=== PATIENT | female | born 1955 | race Caucasian/White ===

== ENCOUNTER 2017-10-27 17:19 | Observation (INO) ==
--- NOTE | 2017-10-27 17:48 | Emergency Department Note ---
Disposition Clinical Impression: Atrial fibrillation with RVR Disposition: Admitted As Inpatient Condition: Fair General Adult HPI - General Chief complaint: ED Chest Pain Stated complaint: Hypertension Time Seen by Provider: 10/27/17 17:22 - History of Present Illness Pain Scale: 2 - Related Data Home Medications Medication Instructions Recorded Confirmed Albuterol Sulfate [Proair Hfa] 2 puff IH Q4H PRN 10/18/17 10/27/17 Metoprolol [Lopressor] 25 mg PO BID 10/18/17 10/27/17 Mometasone/Formoterol [Dulera 200 1 puff IH BID 10/18/17 10/27/17 Mcg/5 Mcg Inhaler] Furosemide [Lasix] 20 mg PO DAILY 10/27/17 10/27/17 Allergies Allergy/AdvReac Type Severity Reaction Status Date / Time codeine AdvReac Vomiting Verified 10/27/17 17:59 ketoprofen AdvReac Hives Verified 10/27/17 17:59 Past Medical History - Past Medical History Medical history: Reports: asthma, COPD, hypertension Surgical history: Reports: other (lumbar fusion) Psychiatric history: Reports: anxiety, depression - Social History Smoking Status: Current every day smoker Smokeless Tobacco Status: No Alcohol use: Reports: none Drug use: Reports: none Course Vital Signs Temperature 98.9 F 10/27/17 17:20 Pulse Rate 165 10/27/17 17:20 Respiratory Rate 24 10/27/17 17:20 Blood Pressure 182/110 10/27/17 17:20 O2 Sat by Pulse Oximetry 94 10/27/17 17:20 Temperature 98.9 F 10/27/17 18:41 Pulse Rate 140 10/27/17 18:45 Respiratory Rate 20 10/27/17 18:45 Blood Pressure 145/90 10/27/17 18:45 O2 Sat by Pulse Oximetry 94 10/27/17 18:45 Oxygen Delivery Oxygen Delivery Room Air Medical Decision Making - Lab Data Result diagrams: 10/27/17 17:40 10/27/17 17:40 Lab Results 10/27/17 10/27/17 Range/Units 17:40 17:40 WBC 14.8 H (4.3-11.1) K/mcL RBC 5.59 H (3.82-4.97) M/mcL Hgb 16.1 H (11.5-15.4) g/dL Hct 48.9 H (35.3-44.9) % MCV 87.5 (83.0-100.0) fL MCH 28.8 (28.0-33.3) pg MCHC 32.9 (31.6-35.5) g/dL RDW 13.7 (11.5-14.5) % Plt Count 261 (140-400) K/mcL MPV 10.8 (9.4-12.4) fL Sodium 136 (136-145) mEq/L Potassium 4.0 (3.5-5.1) mEq/L Chloride 108 H (98-107) mEq/L Carbon Dioxide 23 (23-29) mEq/L BUN 12 (8-23) mg/dL Creatinine 0.76 (0.60-1.20) mg/dL Est GFR ( Amer) > 60 (> 60) Est GFR (Non-Af Amer) > 60 (> 60) BUN/Creatinine Ratio 16 (6-26) Glucose 125 H (70-105) mg/dL Calculated Osmolality 283 (280-300) Calcium 9.5 (8.6-10.3) mg/dL Troponin I < 0.03 (< 0.04) ng/mL Attestation Statement - Attestation Attestation: I examined this patient and my medical decision-making was reviewed with the BATH ATTENDANT/PA/Advanced Practice Nurse/Resident Physician. I agree with the documented findings, disposition and treatment plan as described except to the extent set forth below. I did see the patient upon arrival and she does have chest pain for one hour which is now resolved, palpitations, lightheadedness and her EKG does show atrial fibrillation with a rapid ventricular response with a rate of 174 bpm with some nonspecific ST changes. The patient does use Lopressor 25 mg twice a day for elevated blood pressure for the last 3 weeks but is not taking any anti- arrhythmia medication besides this and does not take any anticoagulation so the patient will receive Cardizem bolus 20 mg and then 10 mg per hour, labs, x-ray, monitoring, IV access and be admitted to the hospital. She is here with her . Mentating well 174 The patient's heart rhythm is now normal sinus rhythm with a repeat EKG showing normal sinus rhythm with rate of 75 without acute ischemic change. I did review the labs. The patient's Cardizem drip has been decreased and is now 5 mg per hour 1912
[2017-10-27 18:02] LABS: Hematocrit 48.9 % (35.3-44.9); Hemoglobin 16.1 g/dL (11.5-15.4); Mean Corpuscular HGB Conc 32.9 g/dL (31.6-35.5); Mean Corpuscular Hemoglobin 28.8 pg (28.0-33.3); Mean Corpuscular Volume 87.5 fL (83.0-100.0); Mean Platelet Volume 10.8 fL (9.4-12.4); Platelet Count 261 K/mcL (140-400); Red Blood Count 5.59 M/mcL (3.82-4.97); Red Cell Distribution Width 13.7 % (11.5-14.5)
[2017-10-27 18:23] LABS: BUN/Creatinine Ratio 16 (6-26); Blood Urea Nitrogen 12 mg/dL (8-23); Calcium 9.5 mg/dL (8.6-10.3); Carbon Dioxide 23 mEq/L (23-29); Chloride 108 mEq/L (98-107); Glucose 125 mg/dL (70-105); Osmolality,Calculated 283 (280-300); Sodium 136 mEq/L (136-145); eGFR For African Americans > 60 (> 60); eGFR For Non-African Americans > 60 (> 60)
[2017-10-27 18:28] LABS: Troponin I < 0.03 ng/mL (< 0.04)
--- NOTE | 2017-10-27 18:49 | Emergency Department Note ---
Disposition Clinical Impression: Atrial fibrillation with RVR, Palpitations Chest pain Qualifiers: Chest pain type: unspecified Qualified Code(s): R07.9 - Chest pain, unspecified Disposition: Admitted As Inpatient Condition: Fair Time of Disposition: 18:49 Chest Pain HPI - General Chief Complaint: ED Chest Pain Stated Complaint: Hypertension Time Seen by Provider: 10/27/17 17:22 Source: patient Mode of arrival: ambulatory Limitations: no limitations Vital Signs Reviewed: Yes Nursing Notes Reviewed: Yes - History of Present Illness HPI Narrative: Patient presenting to the ED with the chief complaint of chest pain and A. fib. Patient was newly diagnosed with A. fib last week and converted in the emergency department. She was discharged home with close outpatient cardiology follow-up. I did start her on metoprolol and had prescribed anticoagulation, but the patient was unable to afford the anticoagulation and has not been taking it. She states that she feels like her heart is racing again and fluttering. She reports feeling weak and dizzy at times. She also reports that she was sent to the ER because she was getting an outpatient echocardiogram to follow-up on diastolic heart failure, when they noted that her heart rate was in the 160s and 170s and that is why she was sent to the ER. She states she has felt palpitations off and on for "a while" but it has been worse within the last several weeks. No fever or chills. She does describe a centralized chest pressure and heaviness, non-Radiating and Nothing Really Seems to Make It Better or Worse. She feels short of breath when her heart rate gets high, but otherwise does not have dyspnea. No abdominal pain, vomiting or diarrhea. She is also mildly nauseated. No pain or swelling in her legs. Severity scale (1-10): 2 - Related Data Home Medications Medication Instructions Recorded Confirmed Albuterol Sulfate [Proair Hfa] 2 puff IH Q4H PRN 10/18/17 10/27/17 Metoprolol [Lopressor] 25 mg PO BID 10/18/17 10/27/17 Mometasone/Formoterol [Dulera 200 1 puff IH BID 10/18/17 10/27/17 Mcg/5 Mcg Inhaler] Furosemide [Lasix] 20 mg PO DAILY 10/27/17 10/27/17 Allergies Allergy/AdvReac Type Severity Reaction Status Date / Time codeine AdvReac Vomiting Verified 10/27/17 17:59 ketoprofen AdvReac Hives Verified 10/27/17 17:59 Review of Systems: As reviewed in the HPI. All other systems reviewed are negative or normal. Chest Pain PMH - Past Medical History Medical history: Reports: asthma, COPD, hypertension Surgical history: Reports: other (lumbar fusion) Psychiatric history: Reports: anxiety, depression - Social History Smoking Status: Current every day smoker Alcohol use: Reports: none Drug use: Reports: none Physical Exam - General Limitations: no limitations General appearance: alert, in no apparent distress - Head Head exam: atraumatic, normocephalic, normal inspection - Eye Eye exam: Present: normal appearance, PERRL, EOMI - ENT ENT exam: normal exam, normal oropharynx, mucous membranes moist - Neck Neck exam: Present: normal inspection, full ROM, trachea midline - Chest Chest inspection: Present: normal inspection, symmetric chest wall rise - Respiratory Respiratory exam: Present: normal lung sounds bilaterally - Cardiovascular Cardiovascular exam: Present: tachycardia, normal heart sounds - Abdominal Exam Abdominal exam: Present: soft, Non-Tender. Absent: tenderness, distention, guarding, rebound, rigidity - Extremities Exam Extremities exam: Present: normal inspection, full ROM. Absent: tenderness, pedal edema - Neurological Exam Neurological exam: Present: alert, oriented X3 - Psychiatric Psychiatric exam: Present: normal affect, normal mood - Skin Skin exam: Present: warm, dry, intact, normal color Course Course Narrative: Patient presenting with A. fib with RVR. Was a new diagnosis last week, but converted in the emergency department and saw cardiology as an outpatient. Was supposed to be on anticoagulants, but she states was too expensive, so she has not been anticoagulated. She does feel palpitations and tachycardia and does have some chest pressure. We will get basic workup and admit. Patient will also need an echocardiogram. - Reevaluation(s) Reevaluation #1: Admitted to the hospital service. Dr. Baxter accepts patient for admission Time: 18:46 Vital Signs Temperature 98.9 F 10/27/17 17:20 Pulse Rate 165 10/27/17 17:20 Respiratory Rate 24 10/27/17 17:20 Blood Pressure 182/110 10/27/17 17:20 O2 Sat by Pulse Oximetry 94 10/27/17 17:20 Temperature 98.9 F 10/27/17 18:41 Pulse Rate 140 10/27/17 18:45 Respiratory Rate 20 10/27/17 18:45 Blood Pressure 145/90 10/27/17 18:45 O2 Sat by Pulse Oximetry 94 10/27/17 18:45 Oxygen Delivery Oxygen Delivery Room Air Chest Pain - Medical Records Medical records reviewed: Yes I reviewed the patient's medical records. - Lab Data Lab results reviewed: Yes I reviewed the patient's lab results. Result diagrams: 10/27/17 17:40 10/27/17 17:40 Lab Results 10/27/17 10/27/17 Range/Units 17:40 17:40 WBC 14.8 H (4.3-11.1) K/mcL RBC 5.59 H (3.82-4.97) M/mcL Hgb 16.1 H (11.5-15.4) g/dL Hct 48.9 H (35.3-44.9) % MCV 87.5 (83.0-100.0) fL MCH 28.8 (28.0-33.3) pg MCHC 32.9 (31.6-35.5) g/dL RDW 13.7 (11.5-14.5) % Plt Count 261 (140-400) K/mcL MPV 10.8 (9.4-12.4) fL Sodium 136 (136-145) mEq/L Potassium 4.0 (3.5-5.1) mEq/L Chloride 108 H (98-107) mEq/L Carbon Dioxide 23 (23-29) mEq/L BUN 12 (8-23) mg/dL Creatinine 0.76 (0.60-1.20) mg/dL Est GFR ( Amer) > 60 (> 60) Est GFR (Non-Af Amer) > 60 (> 60) BUN/Creatinine Ratio 16 (6-26) Glucose 125 H (70-105) mg/dL Calculated Osmolality 283 (280-300) Calcium 9.5 (8.6-10.3) mg/dL Troponin I < 0.03 (< 0.04) ng/mL - Radiology Data Radiology results reviewed: Yes I reviewed the patient's radiology results. - EKG Data EKG attestation: Yes I reviewed and interpreted this EKG. EKG results narrative: A. fib with RVR, rate 174, QTC 343, normal axis, no ischemic changes
[2017-10-27] MEDS ORDERED: Ondansetron 4 MG/2 ML VIAL IVP ONE (18:51)
[2017-10-27] MEDS ORDERED: Naloxone 0.4 MG/ML INJ IVP PRN (19:59)
--- NOTE | 2017-10-27 20:01 | Internal Med History&Physical ---
Date of Encounter: 10/27/17 Time of Encounter: 19:51 Internal Medicine - H&P: HPI Chief complaint: PALPITATION Admitted From: Home Plans for Post Hospital Care: Home History of present illness: Ms. Licea is a 62 year old female WITH H/O htn, copd, chronic a smoker, a strong family history of cardiac disease especially father side and his father at age of 55 due to massive heart attack, newly diagnosed with A. fib last week but not on any anticoagulation though Gen. to was prescribed by her check scaler Dr. Lutz last week but could not get filled due to insurance coverage problem and cardiologists is still working on that. Today morning patient developed palpitation, lightheadedness, dizziness with right sternal chest discomfort in the morning after coming back from the bathroom. Patient came to emergency room where A. fib with RVR was found and Cardizem drip was started. Your physician called on-call hospitalists for the admission for the further management of A. fib with RVR. When I interviewed the patient she converted into normal sinus rhythm. Patient denies fever or chills vomiting headache dizziness short of breath abdominal pain urinary complaint or bowel complaint. Patient had nausea and associated shortness of breath when palpitation episode happened. She had intermittent mild chest discomfort on right sternal area 1-2 x 10 nonradiating but not now this time. Past Med Surg Social Fam HX - Past Medical History Medical history: asthma, COPD, hypertension Psychiatric history: anxiety, depression - Past Surgical History Surgical History: other (lumbar fusion) Additional surgical history: BACK SURGERY - Social History Smoking Status: Current every day smoker Smokeless Tobacco Status: No Alcohol use: none Drug use: none - Family History Father Hx Family Cardiac Disorders: Yes Internal Medicine - H&P: Meds Albuterol Sulfate [Proair Hfa] 2 puff IH Q4H PRN 10/18/17 [History] Metoprolol [Lopressor] 25 mg PO BID 10/18/17 [History] Mometasone/Formoterol [Dulera 200 Mcg/5 Mcg Inhaler] 1 puff IH BID 10/18/17 [ History] Furosemide [Lasix] 20 mg PO DAILY 10/27/17 [History] 3 Allergy/AdvReac Type Severity Reaction Status Date / Time codeine AdvReac Vomiting Verified 10/27/17 17:59 ketoprofen AdvReac Hives Verified 10/27/17 17:59 All Systems PM: A 10-system review of systems was performed and is negative for pertinent findings except as documented above in the HPI. - Constitutional Vitals: Temp Pulse Resp BP Pulse Ox 98.9 F 140 20 145/90 94 10/27/17 18:41 10/27/17 18:45 10/27/17 18:45 10/27/17 18:45 10/27/17 18:45 Exam: General appearance: No acute distress, A&O X 3, obese Head exam: Atraumatic Eye exam: EOMI, PERRLA ENT exam: Moist oral mucosa Neck nontender, supple Respiratory exam: Clear to auscultation bilaterally Cardiovascular exam: Regular rate and rhythm, no systolic murmur Abdominal exam: Soft, nontender, nondistended, positive bowel sounds Extremities exam: No calf tenderness, no pedal edema Present: Skin-no rash, warm, dry, intact Neurological exam: Alert, awake, oriented 3, CN II-XII intact, no focal deficits. No facial droop. Normal speech. Normal gait. Internal Med - H&P Results - Labs CBC & Chem 7: 10/27/17 17:40 10/27/17 17:40 - Assessment and plan (1) Atrial fibrillation with RVR Current Visit: Yes Status: Acute Assessment and plan: Recently diagnosed last week. Patient is on metoprolol 25 mg by mouth twice a day but does was decreased to half as patient had episode of bradycardia. Not on anticoagulation at this time but check scaler is working on it due to insurance coverage problem. Cardizem drip was started in the ER but now patient to normal sinus rhythm therefore will discontinue Cardizem drip. Consulted check scaler and discussed the case with on-call check scaler Dr. Elise who advised to resume home dose metoprolol 25 mg by mouth twice a day, heparin drip, echocardiogram. Tomorrow morning we will decide for the possibility of stress tests if patient is stable or as per cardiology advice. Will keep patient nothing by mouth after midnight. (2) Chest pain Current Visit: Yes Status: Acute Assessment and plan: No active chest pain. Patient has some chest discomfort and associated A. fib with RVR. Patient never had cardiac workup but has very strong family history of cardiac disease therefore need extensive cardiac workup. Echocardiogram ordered. Plan to have a stress test tomorrow after the cardiology evaluation. Continue heparin drip, aspirin, beta flor, statin, nitroglycerin when necessary. Fasting lipid profile ordered. Qualifiers: Chest pain type: unspecified Qualified Code(s): R07.9 - Chest pain, unspecified (3) Leukocytosis Current Visit: Yes Status: Acute Assessment and plan: Patient denies fever. No associated systemic sign and symptom. Urine analysis and chest x-ray ordered. Will wait for the report before considering antibiotic as patient does not appear in sepsis. Could be reactionary response to the ongoing stress due to acute illness. Monitor CBC. Qualifiers: Leukocytosis type: unspecified Qualified Code(s): D72.829 - Elevated white blood cell count, unspecified (4) Hyperglycemia Current Visit: Yes Status: Acute Assessment and plan: No history of diabetes mellitus. Accu-Chek, A1c, sliding scale insulin coverage (5) Essential hypertension Current Visit: No Status: Chronic Assessment and plan: Initial blood pressure was high but now better controlled. Continue metoprolol home dose. Close monitoring BP. Consider when necessary antihypertensive medicine if needed (6) COPD (chronic obstructive pulmonary disease) Current Visit: No Status: Chronic Assessment and plan: Does not appear in acute exacerbation. Continue home medicine. Close monitoring. Qualifiers: COPD type: chronic bronchitis Chronic bronchitis type: simple Qualified Code(s): J41.0 - Simple chronic bronchitis (7) DVT prophylaxis Current Visit: Yes Status: Acute Assessment and plan: At present heparin drip - Time Spent With Patient Total time spent is greater than 50% in coordination of care (as documented) at patient's floor/unit and/or counseling patient: 25 - 35 minutes
[2017-10-27] MEDS ORDERED: *HR* Heparin 5,000 UNIT/ML VIAL IVP ONE (20:07)
[2017-10-27] MEDS ORDERED: *HR* Heparin 5,000 UNIT/ML VIAL IVP PRN (20:07)
[2017-10-27] MEDS ORDERED: Nitroglycerin 0.4 MG TAB.SUBL SL PRN (20:17)
[2017-10-27] MEDS ORDERED: Dextrose Gel 15 GM/37.5 ML TUBE PO PRN ×2 (20:37)
[2017-10-27] MEDS ORDERED: D5% in Water 1,000 ML IVC PRN (20:37)
[2017-10-27] MEDS ORDERED: *HR* Dextrose 50 % in Water (Syg) 50 ML SYRINGE IVP PRN (20:37)
[2017-10-27 20:44] LABS: Prothrombin Time 11.4 Seconds (9.4-12.1)
[2017-10-27 20:46] LABS: Activated Partial Thrombo Time 33.3 Seconds (26.0-36.0)
[2017-10-27] MEDS: Aspirin 81 MG TAB.CHEW PO SCH (21:11)
[2017-10-27 21:15] LABS: Thyroid Stimulating Hormone 4.643 mcIU/mL (0.340-5.600)
[2017-10-27 21:17] LABS: Estimated Average Glucose 120 mg/dl; Hemoglobin A1C 5.8 %
[2017-10-27] MEDS: Budesonide/Formoterol 160/4.5 MDI IH SCH (22:31)
[2017-10-27] MEDS: Heparin 25,000 UNIT/500 ML D5W 25,000 UNIT/500 ML BAG IVC SCH (23:06)
[2017-10-28 02:07] LABS: Basophils # 0.1 K/mcL (0.0-0.2); Basophils % 0.8 %; Eosinophils # 0.5 K/mcL (0.0-0.6); Eosinophils % 3.9 %; Hematocrit 42.7 % (35.3-44.9); Immature Granulocytes % 0.3 % (0-4); Lymphocytes # 4.4 K/mcL (0.6-4.6); Lymphocytes % 33.2 %; Mean Corpuscular HGB Conc 33.5 g/dL (31.6-35.5); Mean Corpuscular Hemoglobin 29.4 pg (28.0-33.3); Mean Corpuscular Volume 87.7 fL (83.0-100.0); Mean Platelet Volume 10.7 fL (9.4-12.4); Monocytes % 7.7 %; Neutrophils # 7.2 K/mcL (1.6-8.9); Platelet Count 225 K/mcL (140-400); Red Blood Count 4.87 M/mcL (3.82-4.97); Red Cell Distribution Width 13.7 % (11.5-14.5); Segmented Neutrophils % 54.1 %
[2017-10-28 02:22] LABS: Hemoglobin 14.3 g/dL (11.5-15.4)
[2017-10-28 02:27] LABS: Alanine Aminotransferase 27 Units/L (7-52); Albumin 3.4 g/dL (3.5-5.7); Albumin/Globulin Ratio 1.4 (1.1-2.2); Alkaline Phosphatase 98 Units/L (34-104); Aspartate Amino Transferase 42 Units/L (13-39); BUN/Creatinine Ratio 15 (6-26); Bilirubin,Total 0.3 mg/dL (0.3-1.0); Blood Urea Nitrogen 12 mg/dL (8-23); Carbon Dioxide 24 mEq/L (23-29); Chloride 108 mEq/L (98-107); Cholesterol 170 mg/dL (< 200); Globulin 2.4 g/dL (2.4-3.5); Glucose 116 mg/dL (70-105); HDL Cholesterol 34 mg/dL (40-59); LDL Cholesterol,Calculated 115 mg/dL (0-99); Osmolality,Calculated 285 (280-300); Potassium 4.2 mEq/L (3.5-5.1); Sodium 137 mEq/L (136-145); Total Protein 5.8 g/dL (6.4-8.9); Triglycerides 104 mg/dL (< 150); eGFR For African Americans > 60 (> 60); eGFR For Non-African Americans > 60 (> 60)
[2017-10-28 06:06] LABS: Heparin anti-factor XA UFH 0.72 IU/mL (0.30-0.70)
[2017-10-28] MEDS ORDERED: Regadenoson 0.4 MG/5 ML SYRINGE IVP ONE (06:43)
[2017-10-28] MEDS ORDERED: Insulin LISPRO 300 UNITS/3 ML VIAL SQ SCH (07:30)
--- NOTE | 2017-10-28 08:30 | Internal Med Progress Note ---
<Juan Daniel Hernandez - Last Filed: 10/28/17 10:25> Date of Encounter: 10/28/17 Time of Encounter: 10:25 - Assessment and plan (1) Atrial fibrillation with RVR Current Visit: Yes Status: Resolved Assessment and plan: Patient is off Cardizem drip. Currently on metoprolol 25 mg by mouth twice a day. Patient was recently diagnosed with atrial fibrillation 1 week ago. And is seen by cardiology outpatient. Etiology of atrial fibrillation includes ischemia, sleep apnea. We are awaiting results of echocardiogram stress test. Patient is not anticoagulated secondary to pending approval of xeralto from insurance company. currently on heparin gtt will transition to xeralto. (2) Essential hypertension Current Visit: No Status: Chronic Assessment and plan: Initial blood pressure was high but now better controlled. Continue metoprolol home dose. Close monitoring BP. Consider when necessary antihypertensive medicine if neededPatient's blood pressure is controlled. Continue metoprolol. (3) COPD (chronic obstructive pulmonary disease) Current Visit: No Status: Chronic Assessment and plan: Patient is not in acute exacerbation. Continue Symbicort. Qualifiers: COPD type: chronic bronchitis Chronic bronchitis type: simple Qualified Code(s): J41.0 - Simple chronic bronchitis (4) Chest pain Current Visit: Yes Status: Acute Assessment and plan: Patient does not have chest pain anymore. Her chest pain is described as substernal worsening with exertion. She is undergoing day one a stress test today. Troponins were negative. EKG did not show any signs of ST-T wave abnormalities. LDL 1:15, HDL 34, total cholesterol 170. Continue aspirin, statin, beta flor. Qualifiers: Chest pain type: unspecified Qualified Code(s): R07.9 - Chest pain, unspecified (5) Leukocytosis Current Visit: Yes Status: Acute Assessment and plan: Unclear etiology but improving. Patient is not febrile, or tachypneic. Tachycardia resolved. She denies dysuria, urinary frequency. Lung exam and chest x-ray negative for any infectious causes. May be secondary to stress reaction. Qualifiers: Leukocytosis type: unspecified Qualified Code(s): D72.829 - Elevated white blood cell count, unspecified (6) Hyperglycemia Current Visit: Yes Status: Acute Assessment and plan: Patient's hemoglobin A1c is 5.8. prediabetes. Patient will be educated on diabetic diet She would benefit greatly from losing 10% of her body weight. (7) DVT prophylaxis Current Visit: Yes Status: Acute Assessment and plan: Heparin gtt (8) Sleep apnea Current Visit: Yes Status: Acute Assessment and plan: Patient was diagnosis sleep apnea outpatient. However she could not make it to work CPAP titration study as her mother . We will consult respiratory therapy to see if patient can have CPAP at night. Qualifiers: Sleep apnea type: obstructive Qualified Code(s): G47.33 - Obstructive sleep apnea (adult) (pediatric) - Time Spent With Patient Total time spent is greater than 50% in coordination of care (as documented) at patient's floor/unit and/or counseling patient: - Subjective Interval history: Patient admitted for A. fib RVR and chest pain. Patient reports her chest pain has resolved. Also A. fib RVR has resolved. She underwent her first part of stress test and echocardiogram this morning. She does report missing metoprolol dose yesterday. She also reports having shortness of breath, nausea , vomiting, mild abdominal pain with her chest pain and palpitations. These are all resolved today. - Constitutional Vitals: Temp Pulse Resp BP Pulse Ox 98 F 60 16 115/59 90 10/28/17 04:52 10/28/17 04:52 10/28/17 04:52 10/28/17 04:52 10/28/17 04:52 - Other Additional findings: General: Pleasant without distress and obese Heart: Regular rate and rhythm with no murmur Lungs: Clear to auscultation bilaterally Abdomen: Soft nontender, nondistended positive bowel sounds Skin: warm and dry, absent rash Extremities: Absent pedal edema, Neuro: Alert oriented 3 Vascular: Pedal and radial pulses 2 out of 4 Internal Medicine: Result - Labs CBC & Chem 7: 10/28/17 01:44 10/28/17 01:44 Labs: Short CBC 10/28/17 Range/Units 01:44 WBC 13.3 H (4.3-11.1) K/mcL Hgb 14.3 D (11.5-15.4) g/dL Hct 42.7 (35.3-44.9) % Plt Count 225 (140-400) K/mcL Neutrophils # 7.2 (1.6-8.9) K/mcL BMP 10/28/17 01:44 Sodium 137 Potassium 4.2 Chloride 108 H Carbon Dioxide 24 BUN 12 Creatinine 0.78 Glucose 116 H Calcium 9.0 Cardiac Enzymes 10/27/17 10/28/17 Range/Units 20:50 01:44 Troponin I < 0.03 < 0.03 (< 0.04) ng/mL Liver Function 10/28/17 Range/Units 01:44 Total Bilirubin 0.3 (0.3-1.0) mg/dL AST 42 H (13-39) Units/L ALT 27 (7-52) Units/L Alkaline Phosphatase 98 (34-104) Units/L Albumin 3.4 L (3.5-5.7) g/dL - ABG Interpretation ABG results: PT/INR, D-dimer PT 11.4 Seconds (9.4-12.1) 10/27/17 17:40 Consult Discharge Plan - Plan Referrals: Araceli Mcgovern CNP [Primary Care Provider] - 11/04/17 4:00 pm <Rylie Izaguirre - Last Filed: 10/28/17 18:39> Date of Encounter: 10/28/17 - Assessment and plan (1) Atrial fibrillation with RVR Current Visit: Yes Status: Resolved (2) Essential hypertension Current Visit: No Status: Chronic (3) COPD (chronic obstructive pulmonary disease) Current Visit: No Status: Chronic Qualifiers: COPD type: chronic bronchitis Chronic bronchitis type: simple Qualified Code(s): J41.0 - Simple chronic bronchitis (4) Chest pain Current Visit: Yes Status: Acute Qualifiers: Chest pain type: unspecified Qualified Code(s): R07.9 - Chest pain, unspecified (5) Leukocytosis Current Visit: Yes Status: Acute Qualifiers: Leukocytosis type: unspecified Qualified Code(s): D72.829 - Elevated white blood cell count, unspecified (6) Hyperglycemia Current Visit: Yes Status: Acute (7) DVT prophylaxis Current Visit: Yes Status: Acute (8) Sleep apnea Current Visit: Yes Status: Acute Qualifiers: Sleep apnea type: obstructive Qualified Code(s): G47.33 - Obstructive sleep apnea (adult) (pediatric) - Time Spent With Patient Total time spent is greater than 50% in coordination of care (as documented) at patient's floor/unit and/or counseling patient: - Constitutional Vitals: Temp Pulse Resp BP Pulse Ox 97.8 F 58 18 141/77 95 10/28/17 15:35 10/28/17 15:35 10/28/17 15:35 10/28/17 15:35 10/28/17 15:35 Internal Medicine: Result - Labs CBC & Chem 7: 10/28/17 01:44 10/28/17 01:44 Labs: Short CBC 10/28/17 Range/Units 01:44 WBC 13.3 H (4.3-11.1) K/mcL Hgb 14.3 D (11.5-15.4) g/dL Hct 42.7 (35.3-44.9) % Plt Count 225 (140-400) K/mcL Neutrophils # 7.2 (1.6-8.9) K/mcL BMP 10/28/17 01:44 Sodium 137 Potassium 4.2 Chloride 108 H Carbon Dioxide 24 BUN 12 Creatinine 0.78 Glucose 116 H Calcium 9.0 Cardiac Enzymes 10/27/17 10/28/17 Range/Units 20:50 01:44 Troponin I < 0.03 < 0.03 (< 0.04) ng/mL Liver Function 10/28/17 Range/Units 01:44 Total Bilirubin 0.3 (0.3-1.0) mg/dL AST 42 H (13-39) Units/L ALT 27 (7-52) Units/L Alkaline Phosphatase 98 (34-104) Units/L Albumin 3.4 L (3.5-5.7) g/dL Urine 10/28/17 Range/Units 14:58 Urine Color Yellow (Yellow) Urine Clarity Clear (Clear) Urine pH 6.0 (5.0-8.0) pH Units Ur Specific [place] 1.022 (1.010-1.025) Urine Protein Negative (Neg-Trace) mg/dL Urine Glucose (UA) Normal (Normal) mg/dL - ABG Interpretation ABG results: PT/INR, D-dimer PT 11.4 Seconds (9.4-12.1) 10/27/17 17:40 - Impressions Impressions Echocardiogram 10/28/17 20:14 Impressions: Technically sub-optimal due to poor echocardiographic windows. LVEF 60%. Normal LV chamber size, wall thickness and function. Grossly, mildly dilated right ventricle with normal function. Moderate left ventricular diastolic dysfunction. Unable to estimate RVSP due to lack of TR jet. No significant valvular dysfunction. Left Ventricular Wall Motion: Rest Echo Findings All wall segments showed normal motion. Findings: Study Quality * Technically sub-optimal due to poor echocardiographic windows. ECG Findings * Normal sinus rhythm. Left Ventricle * LVEF 55%. * Normal LV chamber size, wall thickness and function. * Moderate left ventricular diastolic dysfunction. Right Ventricle * Grossly, mildly dilated right ventricle with normal function. Left Atrium * Mildly dilated left atrium. Right Atrium * Mildly dilated right atrium. Aortic Valve * Aortic valve not well visualized. * No aortic regurgitation. * No aortic stenosis. Mitral Valve * Normal mitral valve structure and function. * No mitral regurgitation. * No mitral stenosis. Tricuspid Valve * Normal tricuspid valve structure and function. * No tricuspid regurgitation. * Unable to estimate RVSP due to lack of TR jet. Pulmonic Valve * Pulmonic valve not well visualized. Aorta * Normally sized aortic root. Pericardium * The pericardium appears normal. IVC * Normal IVC dimensions and inspiratory collapse. Pulmonary Artery * Pulmonary artery not well visualized. - Attending Attestation I examined this patient and my medical decision-making was reviewed with the Resident Physician. I agree with the documented findings, disposition and treatment plan as described except to the extent set forth below.
[2017-10-28] MEDS: Aspirin 81 MG TAB.CHEW PO SCH (10:32)
[2017-10-28] MEDS: Budesonide/Formoterol 160/4.5 MDI IH SCH ×2 (11:43→19:53)
--- NOTE | 2017-10-28 13:54 | Event Note ---
Date of Encounter: 10/28/17 Time of Encounter: 13:51 - Cardiology Event Note Patient with recent diagnosis of atrial fibrillation. Per reports, came in a.fib RVR. Was started on xarelto for anticoagulation, however did not fill due to prior authorization pending. Telemetry reviewed, now SR. TTE with LVEF preserved, no segmental wall motion abnormalities noted. 2 day stress test pending. Cardiology will see and evaluate after testing completed to give further recommendations. Thank you.
[2017-10-28 15:43] LABS: Bilirubin,Urine Negative (Negative); Blood,Urine Negative (Negative); Clarity,Urine Clear (Clear); Color,Urine Yellow (Yellow); Glucose,Urine (UA) Normal (Normal); Ketones,Urine Negative (Negative); Leukocyte Esterase,Urine Negative (Negative); Nitrite,Urine Negative (Negative); Protein,Urine Negative (Neg-Trace); Specific Gravity,Urine 1.022 (1.010-1.025); Urobilinogen,Urine Normal (Normal)
[2017-10-28] MEDS: Heparin 25,000 UNIT/500 ML D5W 25,000 UNIT/500 ML BAG IVC SCH (16:02)
--- NOTE | 2017-10-28 17:29 | Electrocardiograph Report ---
[address] [address] Test Date: 2017-10-27 Pat Name: Tequila Licea Department: 104 Room: [facility] Gender: F [employer]: ALIA : 1955 Requested By: Varsha Baxter Order Number: [id number] Reading MD: Homar Verdugo Measurements Intervals [place] Rate: 174 P: AL: 0 QRS: 81 QRSD: 101 T: -29 QT: 250 QTc: 343 Interpretive Statements ATRIAL FIBRILLATION WITH RAPID VENTRICULAR RESPONSE NONSPECIFIC ST & T-WAVE ABNORMALITY Electronically Signed On 10-28-2017 17:28:16 EDT by Homar Verdugo
--- NOTE | 2017-10-28 17:36 | Electrocardiograph Report ---
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
[2017-10-28] MEDS: *HR* Heparin 5,000 UNIT/ML VIAL IVP PRN (23:12)
[2017-10-29] MEDS: Heparin 25,000 UNIT/500 ML D5W 25,000 UNIT/500 ML BAG IVC SCH ×3 (04:02→19:39)
[2017-10-29 06:04] LABS: Basophils # 0.1 K/mcL (0.0-0.2); Basophils % 0.9 %; Eosinophils # 0.5 K/mcL (0.0-0.6); Eosinophils % 4.6 %; Hematocrit 41.6 % (35.3-44.9); Hemoglobin 13.6 g/dL (11.5-15.4); Immature Granulocytes % 0.4 % (0-4); Lymphocytes # 4.6 K/mcL (0.6-4.6); Lymphocytes % 42.7 %; Mean Corpuscular HGB Conc 32.7 g/dL (31.6-35.5); Mean Corpuscular Hemoglobin 28.8 pg (28.0-33.3); Mean Corpuscular Volume 87.9 fL (83.0-100.0); Mean Platelet Volume 11.1 fL (9.4-12.4); Monocytes # 0.8 K/mcL (0.0-1.3); Monocytes % 7.3 %; Neutrophils # 4.7 K/mcL (1.6-8.9); Platelet Count 184 K/mcL (140-400); Red Blood Count 4.73 M/mcL (3.82-4.97); Red Cell Distribution Width 13.5 % (11.5-14.5); Segmented Neutrophils % 44.1 %
[2017-10-29 07:33] LABS: Activated Partial Thrombo Time 142.1 Seconds (26.0-36.0)
[2017-10-29 07:39] LABS: Heparin anti-factor XA UFH 0.84 IU/mL (0.30-0.70)
[2017-10-29] MEDS: Budesonide/Formoterol 160/4.5 MDI IH SCH ×2 (07:45→20:25)
--- NOTE | 2017-10-29 11:39 | Cardiology Consult Note ---
<Ya Schwab - Last Filed: 10/29/17 11:36> Date of Encounter: 10/29/17 Time of Encounter: 09:00 Assessment and Plan (1) Atrial fibrillation Current Visit: No Status: Chronic Per cardiology: -Recently diagnosed with a.fib. -On BB. -Admitted with a.fib RVR, required cardizem for a short period. -NOw SR, HR 60s. -Currently on heparin drip for anticoagulation. -TTE with LVEF 60%, mildly dilated RV with normal function, moderate diastolic dysfunction, no segmental wall motion abnormalities noted. -Had been recommended for xarelto OP however did not fill since she was awaiting PA from insurance. -Agree with BB, heparin drip for now. Awaiting PA for xarelto. -Consider OP referral to EP. Qualifiers: Atrial fibrillation type: paroxysmal Qualified Code(s): I48.0 - Paroxysmal atrial fibrillation (2) Abnormal stress test Current Visit: Yes Status: Acute Per cardiology: -Stress test with Small sized, moderate intensity stress perfusion defect involving the mid to distal inferior wall. Findings represent reversible ischemia. -Denies current chest pain. -On asa, statin, BB, heparin drip. -Continue heparin drip. -Plan for [facility] Tuesday. Discussion w patient/family: The assessment and plan as outlined above was discussed with the patient who expressed understanding and agreement. All questions were answered. Thank you for involving us in the care of your patient. Please call with any questions. Discussed and reviewed with . History of Present Illness Consult date: 10/27/17 Requesting physician: Ambar Sanchez Consult reason: a.fib Chief complaint: palpitations History of present illness: Ms. Licea is a 62 year old female with a relevant past medical history of recently diagnosed a.fib, GERD, depression, anxiety, bipolar disorder, asthma, fibromyalgia who presented to [facility] with complaints of palpitations, rapid heart beat. Patient also reports associated shortness of breath and fatigue. Denies current symptoms. Patient states was recently recommended for xarelto, however did not fill due to awaiting prior auth. Past Med Surg Social Fam HX - Past Medical History Attestation: Yes The following information was validated with the patient. Source: patient, old records reviewed Medical history: asthma, atrial fibrillation, COPD, hypertension Additional medical history: basal cell carcioma on face Psychiatric history: anxiety, depression - Past Surgical History Surgical History: other (lumbar fusion) Additional surgical history: BACK SURGERY - Social History Smoking Status: Current every day smoker Packs per day: 1 pack Smokeless Tobacco Status: No Alcohol use: none Drug use: none - Family History Father Hx Family Cardiac Disorders: Yes Mother Name: Jordy Burger Age at : 83 Cause of : cancer Hx Family Cardiac Disorders: No Hx Family Respiratory Disorders: No Hx Family Cancer: Yes Hx Family GI Disorders: No Hx Family Genitourinary Disorders: No Medications and Allergies Albuterol Sulfate [Proair Hfa] 2 puff IH Q4H PRN 10/18/17 [History] Metoprolol [Lopressor] 25 mg PO BID 10/18/17 [History] Mometasone/Formoterol [Dulera 200 Mcg/5 Mcg Inhaler] 1 puff IH BID 10/18/17 [ History] Furosemide [Lasix] 20 mg PO DAILY 10/27/17 [History] Cyclobenzaprine HCl 5 mg PO BID PRN 10/30/17 [History] 3 Allergy/AdvReac Type Severity Reaction Status Date / Time codeine AdvReac Vomiting Verified 10/27/17 17:59 ketoprofen AdvReac Hives Verified 10/27/17 17:59 All Systems Review: The remainder of the systems were reviewed and are negative - Constitutional Constitutional: fatigue - Cardiovascular Cardiovascular: as per HPI, dyspnea on exertion, palpitations, rapid heart rate Physical Examination Vital Signs, Last 4 Hours Pulse Resp BP Pulse Ox 10/29/17 10:31 63 18 148/83 10/29/17 07:45 16 90 General: Conversant, No Apparent Distress HEENT: Atraumatic, Normocephaly, Mucus Membranes Moist Neck: No JVD, Normal carotid pulses Cardiac: Reg Rate and Rhythm, Normal S1 and S2, No Murmur Lungs: Normal Breath Sounds, No Wheeze, Rales, Rhonchi Neuro: Alert and responsive, No focal deficits noted Abdomen: Soft, Non-Tender Skin: No rashes noted on visualized skin Musculoskeletal: No Chest Wall Tenderness Extremities: No Clubbing, No Cyanosis, No Edema, Normal Pulses Results 10/29/17 05:12 10/28/17 01:44 Lab Results Active Medications Albuterol Sulfate (Albuterol Inhaler) 2 puff IH Q4H PRN PRN Reason: Shortness Of Breath Stop: 04/28/18 20:17 Last Admin: 10/27/17 22:34 Dose: 2 puff Aspirin (Aspirin) 81 mg PO DAILY [facility] Stop: 04/28/18 20:16 Last Admin: 10/28/17 10:32 Dose: 81 mg Atorvastatin Calcium (Lipitor) 20 mg PO HS [facility] Stop: 04/28/18 21:01 Last Admin: 10/28/17 21:09 Dose: 20 mg Budesonide/Formoterol Fumarate (Symbicort) 2 puff IH BIDR [facility] Stop: 04/28/18 22:01 Last Admin: 10/29/17 07:45 Dose: 2 puff Heparin Sodium (Porcine) (Heparin) 9,000 unit IVP Q6HR PRN PRN Reason: SEE COMMENTS Stop: 04/28/18 20:08 Heparin Sodium (Porcine) (Heparin) 4,500 unit IVP Q6H PRN PRN Reason: SEE COMMENTS Stop: 04/28/18 20:08 Last Admin: 10/28/17 23:12 Dose: 4,500 unit Heparin Sodium/Dextrose (Heparin 25,000 Unit/500 Ml D5w) 25,000 unit in 500 mls @ 43.258 mls/hr IVC .[id number] THAD; 14 UNIT/KG/HR PRN Reason: Protocol Stop: 04/28/18 20:16 Last Titration: 10/29/17 09:18 Dose: 12.34 unit/kg/hr, 38.129 mls/hr Metoprolol Tartrate (Lopressor) 25 mg PO BID [facility] Stop: 04/28/18 20:16 Last Admin: 10/28/17 21:09 Dose: 25 mg Naloxone HCl (Narcan) 0.4 mg IVP Q2MIN PRN PRN Reason: SEE COMMENTS Stop: 04/28/18 20:00 Nitroglycerin (Nitroglycerin) 0.4 mg SL Q5MIN PRN PRN Reason: Chest Pain Stop: 04/28/18 20:18 Laboratory Tests 10/27/17 10/27/17 10/28/17 17:40 20:50 01:44 Hgb Potassium Creatinine Magnesium 2.0 Troponin I < 0.03 < 0.03 < 0.03 TSH 4.643 10/28/17 10/29/17 01:44 05:12 Hgb 13.6 Potassium 4.2 Creatinine 0.78 Magnesium Troponin I TSH - Imaging and Cardiology Chest Xray: report reviewed Stress Test: report reviewed Echo: report reviewed - EKG Interpretation EKG results cardiology: personally reviewed (ECG with atrial fibrillation, RVR, HR 174. Diffuse ST depressions noted), other (Telemetry reviewed with average HR previous 12 hours noted to be 61, SR. PVCs and PACs noted.) Consult Discharge Plan - Plan Referrals: Araceli Mcgovern, M[employer]TER [Primary Care Provider] - 11/04/17 4:00 pm <Girish Cunha - Last Filed: 10/30/17 19:21> Date of Encounter: 10/30/17 - Attending Attestation I have personally performed a face to face evaluation on this patient. I have reviewed and agree with the care plan. History and Exam by me shows: CC: Palpitations HPI: Pt reports having episodes of heart racing and skipping, come and go spontaneously, last up to twenty minutes, but most events are less than two minutes in length. Pt reports she does get shortness of breath with some of these events, if they last over two minutes. Symptoms resolve with rest. She denies chest pain, pressure, arm, neck or jaw pain. She underwent stress imaging this morning which did not provoke these symptoms. . PMH: reviewed ROS: Reviewed PE: pt seen and examined, agree with findings as documented. IMP:Plan 1. Paroxysmal atrial fib with rapid ventricular response, back in NSR following diltiazem bolus. Pt has had several episodes of A fib with RVR, adjusting meds as outpatient, had recommended systemic anticoagulation with Xaralto for primary stroke risk reduction, pt did not start meds due to insurance company delay for prior auth, is on heparin IV, would continue for now, start Xaralto after LHC/poss. . 2. CAD: abnormal stress test with small mid to distal inferior wall reversible defect, recommend LHC/Poss, risks and benefits discussed, pt agrees to proceed, will schedule for 10/31/2017. Assessment and Plan Discussion w patient/family: The assessment and plan as outlined above was discussed with the patient and/or family members who expressed understanding and agreement. All questions were answered. Thank you for involving us in the care of your patient. Please call with any questions. History of Present Illness History of present illness: Ms. Licea is a 62 year old female All Systems Review: The remainder of the systems were reviewed and are negative Physical Examination Vital Signs, Last 4 Hours Temp Pulse Resp BP Pulse Ox 10/30/17 15:23 98.5 F 63 17 131/55 96 Results 10/30/17 07:01 10/30/17 07:01 Lab Results 10/29/17 10/30/17 10/30/17 22:52 07:01 07:01 WBC 9.0 Hgb 13.0 Hct 39.6 Plt Count 177 APTT 82.8 H Sodium 137 Potassium 4.0 Chloride 109 H Carbon Dioxide 27 BUN 9 Creatinine 0.75 Glucose 105 Calcium 8.7 10/30/17 07:01 WBC Hgb Hct Plt Count APTT 88.9 H Sodium Potassium Chloride Carbon Dioxide BUN Creatinine Glucose Calcium
--- NOTE | 2017-10-29 11:48 | Internal Med Progress Note ---
Date of Encounter: 10/29/17 Time of Encounter: 17:30 - Assessment and plan (1) Atrial fibrillation with RVR Current Visit: Yes Status: Resolved Assessment and plan: Patient is off Cardizem drip. Currently on metoprolol 25 mg by mouth twice a day. Patient was recently diagnosed with atrial fibrillation 1 week ago. And is seen by cardiology outpatient. Etiology of atrial fibrillation includes ischemia, sleep apnea. Patient is not anticoagulated secondary to pending approval of xeralto from insurance company. currently on heparin gtt Stress test today finished, await results. (2) Essential hypertension Current Visit: No Status: Chronic Assessment and plan: Initial blood pressure was high but now better controlled. Continue metoprolol home dose. (3) COPD (chronic obstructive pulmonary disease) Current Visit: No Status: Chronic Assessment and plan: Patient is not in acute exacerbation. Continue Symbicort. Qualifiers: COPD type: chronic bronchitis Chronic bronchitis type: simple Qualified Code(s): J41.0 - Simple chronic bronchitis (4) Chest pain Current Visit: Yes Status: Acute Assessment and plan: Patient does not have chest pain anymore. Her chest pain is described as substernal worsening with exertion. She is undergoing day one a stress test today. Troponins were negative. EKG did not show any signs of ST-T wave abnormalities. LDL 1:15, HDL 34, total cholesterol 170. Continue aspirin, statin, beta flor. On heparin drip Qualifiers: Chest pain type: unspecified Qualified Code(s): R07.9 - Chest pain, unspecified (5) Leukocytosis Current Visit: Yes Status: Acute Assessment and plan: Resolved, was likely secondary to stress reaction. Qualifiers: Leukocytosis type: unspecified Qualified Code(s): D72.829 - Elevated white blood cell count, unspecified (6) Hyperglycemia Current Visit: Yes Status: Acute Assessment and plan: Patient's hemoglobin A1c is 5.8. Prediabetes. (7) DVT prophylaxis Current Visit: Yes Status: Acute Assessment and plan: On heparin gtt (8) Sleep apnea Current Visit: Yes Status: Acute Assessment and plan: Patient was diagnosis sleep apnea outpatient. However she could not make it to work CPAP titration study as her mother . We will consult respiratory therapy to see if patient can have CPAP at night. Qualifiers: Sleep apnea type: obstructive Qualified Code(s): G47.33 - Obstructive sleep apnea (adult) (pediatric) - Time Spent With Patient Total time spent is greater than 50% in coordination of care (as documented) at patient's floor/unit and/or counseling patient: - Subjective Interval history: Patient returned form second part of stress test. She has no complaints. Denies cp, palpitations, SOB, fevers/chills. - Constitutional Vitals: Temp Pulse Resp BP Pulse Ox 97.5 F L 63 18 148/83 90 10/29/17 06:54 10/29/17 10:31 10/29/17 10:31 10/29/17 10:31 10/29/17 07:45 General appearance: Present: A&O X 3, no acute distress - Head Head exam: Present: atraumatic, normocephalic - Eye Eye exam: Present: PERRL, conjuntiva pink, sclera anicteric Pupils: Present: PERRL - Neck Neck exam general surgery: Present: supple, trachea midline. Absent: lymphadenopathy - Respiratory Respiratory exam: Present: CTAB. Absent: accessory muscle use, rales, rhonchi, wheezes - Cardiovascular Cardiovascular exam: Present: RRR, +S1, +S2. Absent: diastolic murmur, gallop, rubs, systolic murmur - GI/Abdominal GI/Abdominal exam: Present: normal bowel sounds, soft, no peritoneal signs. Absent: distended, tenderness - Extremities Exam Extremities exam: Present: warm, radial pulses palpable and symmetrical. Absent : calf tenderness, cyanotic, pedal edema - Neurological Exam Neurological exam: Present: CN II-XII intact, oriented X3, no focal deficits. Absent: pronater drift, facial droop, speech deficit - Skin Skin exam: Present: dry, intact Internal Medicine: Result - Labs CBC & Chem 7: 10/29/17 05:12 10/28/17 01:44 Labs: Short CBC 10/29/17 Range/Units 05:12 WBC 10.7 (4.3-11.1) K/mcL Hgb 13.6 (11.5-15.4) g/dL Hct 41.6 (35.3-44.9) % Plt Count 184 (140-400) K/mcL Neutrophils # 4.7 (1.6-8.9) K/mcL Urine 07/06/18 Range/Units 14:58 Urine Color Yellow (Yellow) Urine Clarity Clear (Clear) Urine pH 6.0 (5.0-8.0) pH Units Ur Specific [place] 1.022 (1.010-1.025) Urine Protein Negative (Neg-Trace) mg/dL Urine Glucose (UA) Normal (Normal) mg/dL - ABG Interpretation ABG results: PT/INR, D-dimer PT 11.4 Seconds (9.4-12.1) 10/27/17 17:40 Consult Discharge Plan - Plan Referrals: Araceli Mcgovern, SAMINA [Primary Care Provider] - 11/04/17 4:00 pm
[2017-10-29] MEDS: Aspirin 81 MG TAB.CHEW PO SCH (12:10)
[2017-10-29] MEDS: *HR* Heparin 5,000 UNIT/ML VIAL IVP PRN (17:07)
[2017-10-30] MEDS ORDERED: Ibuprofen 600 MG TABLET PO ONE (04:37)
[2017-10-30 07:25] LABS: Basophils # 0.1 K/mcL (0.0-0.2); Basophils % 0.9 %; Eosinophils # 0.4 K/mcL (0.0-0.6); Eosinophils % 4.9 %; Hematocrit 39.6 % (35.3-44.9); Immature Granulocytes % 0.4 % (0-4); Lymphocytes # 3.4 K/mcL (0.6-4.6); Lymphocytes % 38.2 %; Mean Corpuscular HGB Conc 32.8 g/dL (31.6-35.5); Mean Corpuscular Hemoglobin 28.4 pg (28.0-33.3); Mean Corpuscular Volume 86.7 fL (83.0-100.0); Mean Platelet Volume 10.8 fL (9.4-12.4); Monocytes # 0.7 K/mcL (0.0-1.3); Monocytes % 7.6 %; Neutrophils # 4.3 K/mcL (1.6-8.9); Platelet Count 177 K/mcL (140-400); Red Blood Count 4.57 M/mcL (3.82-4.97); Red Cell Distribution Width 13.6 % (11.5-14.5)
[2017-10-30] MEDS: Budesonide/Formoterol 160/4.5 MDI IH SCH ×2 (07:31→21:26)
[2017-10-30 07:45] LABS: BUN/Creatinine Ratio 12 (6-26); Blood Urea Nitrogen 9 mg/dL (8-23); Calcium 8.7 mg/dL (8.6-10.3); Carbon Dioxide 27 mEq/L (23-29); Chloride 109 mEq/L (98-107); Glucose 105 mg/dL (70-105); Osmolality,Calculated 283 (280-300); Sodium 137 mEq/L (136-145); eGFR For African Americans > 60 (> 60); eGFR For Non-African Americans > 60 (> 60)
--- NOTE | 2017-10-30 08:21 | Event Note ---
Date of Encounter: 10/30/17 Time of Encounter: 08:20 - Cardiology Event Note Patient with atrial fibrillation, currently remains in SR. Abnormal stress test , plan for [facility] tomorrow. Further recommendations pending [facility] tomorrow.
[2017-10-30] MEDS: Aspirin 81 MG TAB.CHEW PO SCH (09:02)
[2017-10-30] MEDS: Heparin 25,000 UNIT/500 ML D5W 25,000 UNIT/500 ML BAG IVC SCH ×2 (09:03→21:23)
--- NOTE | 2017-10-30 11:50 | Internal Med Progress Note ---
Date of Encounter: 10/30/17 Time of Encounter: 11:48 - Assessment and plan (1) Chest pain Current Visit: Yes Status: Acute Assessment and plan: Patient does not have chest pain anymore. Her chest pain is described as substernal worsening with exertion. She is undergoing day one a stress test today. Troponins were negative. EKG did not show any signs of ST-T wave abnormalities. LDL 1:15, HDL 34, total cholesterol 170. Continue aspirin, statin, beta flor. On heparin drip [facility] tomorrow. Qualifiers: Chest pain type: unspecified Qualified Code(s): R07.9 - Chest pain, unspecified (2) Atrial fibrillation with RVR Current Visit: Yes Status: Resolved Assessment and plan: Patient is off Cardizem drip. Currently on metoprolol 25 mg by mouth twice a day. Patient was recently diagnosed with atrial fibrillation 1 week ago. And is seen by cardiology outpatient. Etiology of atrial fibrillation includes ischemia, sleep apnea. Patient is not anticoagulated secondary to pending approval of xeralto from insurance company. currently on heparin gtt HR under control (3) Essential hypertension Current Visit: No Status: Chronic Assessment and plan: Initial blood pressure was high but now better controlled. Continue metoprolol home dose. (4) COPD (chronic obstructive pulmonary disease) Current Visit: No Status: Chronic Assessment and plan: Patient is not in acute exacerbation. Continue Symbicort. Qualifiers: COPD type: chronic bronchitis Chronic bronchitis type: simple Qualified Code(s): J41.0 - Simple chronic bronchitis (5) Leukocytosis Current Visit: Yes Status: Resolved Assessment and plan: Resolved, was likely secondary to stress reaction. Qualifiers: Leukocytosis type: unspecified Qualified Code(s): D72.829 - Elevated white blood cell count, unspecified (6) Hyperglycemia Current Visit: Yes Status: Acute Assessment and plan: Patient's hemoglobin A1c is 5.8. Prediabetes. (7) DVT prophylaxis Current Visit: Yes Status: Acute Assessment and plan: On heparin gtt (8) Sleep apnea Current Visit: Yes Status: Acute Assessment and plan: Patient was diagnosis sleep apnea outpatient. However she could not make it to work CPAP titration study as her mother . Will consider overnight study when more stable Qualifiers: Sleep apnea type: obstructive Qualified Code(s): G47.33 - Obstructive sleep apnea (adult) (pediatric) - Time Spent With Patient Total time spent is greater than 50% in coordination of care (as documented) at patient's floor/unit and/or counseling patient: - Subjective Interval history: Patient returned form second part of stress test. She has no complaints. Denies cp, palpitations, SOB, fevers/chills. HR under control - Constitutional Vitals: Temp Pulse Resp BP Pulse Ox 98.2 F 51 18 121/57 93 10/30/17 00:30 10/30/17 06:54 10/30/17 07:31 10/30/17 06:54 10/30/17 07:31 General appearance: Present: A&O X 3, no acute distress - Head Head exam: Present: atraumatic, normocephalic - Eye Eye exam: Present: PERRL, conjuntiva pink, sclera anicteric Pupils: Present: PERRL - Neck Neck exam general surgery: Present: supple, trachea midline. Absent: lymphadenopathy - Respiratory Respiratory exam: Present: CTAB. Absent: accessory muscle use, rales, rhonchi, wheezes - Cardiovascular Cardiovascular exam: Present: irregular rhythm, +S1, +S2. Absent: diastolic murmur, gallop, rubs, systolic murmur, tachycardia - GI/Abdominal GI/Abdominal exam: Present: normal bowel sounds, soft, no peritoneal signs. Absent: distended, tenderness - Extremities Exam Extremities exam: Present: warm, radial pulses palpable and symmetrical. Absent : calf tenderness, cyanotic, pedal edema - Neurological Exam Neurological exam: Present: CN II-XII intact, oriented X3, no focal deficits. Absent: pronater drift, facial droop, speech deficit - Skin Skin exam: Present: dry, intact Internal Medicine: Result - Labs CBC & Chem 7: 10/30/17 07:01 10/30/17 07:01 Labs: Short CBC 10/30/17 Range/Units 07:01 WBC 9.0 (4.3-11.1) K/mcL Hgb 13.0 (11.5-15.4) g/dL Hct 39.6 (35.3-44.9) % Plt Count 177 (140-400) K/mcL Neutrophils # 4.3 (1.6-8.9) K/mcL BMP 10/30/17 07:01 Sodium 137 Potassium 4.0 Chloride 109 H Carbon Dioxide 27 BUN 9 Creatinine 0.75 Glucose 105 Calcium 8.7 - ABG Interpretation ABG results: PT/INR, D-dimer PT 11.4 Seconds (9.4-12.1) 10/27/17 17:40 Consult Discharge Plan - Plan Referrals: Araceli Mcgovern, SAMINA [Primary Care Provider] - 11/04/17 4:00 pm
[2017-10-31 07:29] LABS: BUN/Creatinine Ratio 11 (6-26); Blood Urea Nitrogen 8 mg/dL (8-23); Calcium 8.6 mg/dL (8.6-10.3); Carbon Dioxide 26 mEq/L (23-29); Chloride 108 mEq/L (98-107); Glucose 110 mg/dL (70-105); Osmolality,Calculated 285 (280-300); Potassium 3.9 mEq/L (3.5-5.1); Sodium 138 mEq/L (136-145); eGFR For African Americans > 60 (> 60); eGFR For Non-African Americans > 60 (> 60)
[2017-10-31 07:48] LABS: Basophils # 0.1 K/mcL (0.0-0.2); Basophils % 0.6 %; Eosinophils # 0.4 K/mcL (0.0-0.6); Eosinophils % 4.5 %; Hematocrit 41.2 % (35.3-44.9); Hemoglobin 13.7 g/dL (11.5-15.4); Immature Granulocytes % 0.2 % (0-4); Lymphocytes # 3.6 K/mcL (0.6-4.6); Lymphocytes % 37.6 %; Mean Corpuscular HGB Conc 33.3 g/dL (31.6-35.5); Mean Corpuscular Volume 87.3 fL (83.0-100.0); Mean Platelet Volume 10.9 fL (9.4-12.4); Monocytes # 0.7 K/mcL (0.0-1.3); Monocytes % 7.8 %; Neutrophils # 4.7 K/mcL (1.6-8.9); Platelet Count 176 K/mcL (140-400); Red Blood Count 4.72 M/mcL (3.82-4.97); Red Cell Distribution Width 13.5 % (11.5-14.5); Segmented Neutrophils % 49.3 %
[2017-10-31] MEDS: Budesonide/Formoterol 160/4.5 MDI IH SCH ×2 (07:48→20:07)
[2017-10-31] MEDS: Aspirin 81 MG TAB.CHEW PO SCH (08:05)
[2017-10-31] MEDS ORDERED: *HR* Midazolam HCl 2 MG/2 ML VIAL ONE ×2 (10:01→10:22)
[2017-10-31] MEDS ORDERED: 0.9 % Sodium Chloride 1,000 ML ONE ×2 (10:01→11:01)
[2017-10-31] MEDS ORDERED: *HR* FentaNYL (PF) 100 MCG/2 ML VIAL ONE (10:01)
--- NOTE | 2017-10-31 10:17 | Pre-Sedation Evaluation ---
Pre-sedation evaluation - Pre-sedation checklist Date of procedure: 10/31/17 Procedure: C Recent Vitals: Last Vital Signs Temp 98.0 F 10/31/17 06:39 Pulse 65 10/31/17 06:39 Resp 16 10/31/17 07:48 BP 141/84 10/31/17 06:39 Pulse Ox 97 10/31/17 07:48 H&P (including ROS) documented in medical record: Yes Previous reaction to sedatives/anesthetics: No Dietary Status: NPO after Midnight Dentition: No loose teeth or bridges ASA Classification *see protocol: CLASS II-Mild systemic disease Cardiac Registry (Cardio Only) - Functional Capacity Functional Capacity: >=4 METS with symptoms - Clincal Frailty Scale Clinical Frailty Scale: Managing Well
[2017-10-31] MEDS ORDERED: Ondansetron 4 MG/2 ML VIAL ONE (10:33)
[2017-10-31] MEDS ORDERED: Heparin 1,000 UNITS/500 mL 500 ML ONE (11:01)
[2017-10-31] MEDS ORDERED: Verapamil 5 MG/2 ML VIAL ONE (11:01)
[2017-10-31] MEDS ORDERED: Tirofiban 12.5 MG/250ML 12.5 MG/250 ML BAG ONE (11:01)
[2017-10-31] MEDS ORDERED: ISOVUE-370 200 ML INFUS..BTL IV ONE (11:02)
[2017-10-31] MEDS ORDERED: Nitroglycerin 1,000 MCG/10 ML VIAL IV ONE (11:02)
[2017-10-31] MEDS ORDERED: *HR* Heparin 10,000 UNIT/10 ML VIAL ONE (11:02)
--- NOTE | 2017-10-31 11:09 | Invasive Diagnostic Lab Proc ---
Name: Tequila Licea Date of Study: 10/31/2017 Date: 1955 Ht: 70.1in Medical Record#: [id number] Age: 62 Wt: 339.51lb Gender: Female BSA: 2.62 Order #: [id number] BMI: 48.6 Physicians Procedure Physician: Anderson Lutz MD, [facility] Referring MD: Referring MD: Staff Name Position Time In Sites, Aide RT (R) Monitor 10:01 AM Nigel Romeo RT (R) Scrub 10:01 AM Lucretia Carlson RN [place] 10:01 AM Cassie Leach RN [place] 10:01 AM Indications Indication Abnormal Test - Stress Procedures Performed Procedure L HRT ARTERY/VENTRICLE ANGIO PRQ CARD CIERA STENT W/ANGIO 1 VSL Pre-Procedure Checklist Informed consent is complete signed and on chart. H&P is on chart. ID band is on and ID verified with patient. Patient NPO for procedure The procedure was described for the patient and questions were answered. Blood Pressure: 166/79 ECG is on chart. Rhythm: NSR Plan of Care Patient will tolerate the procedure without complications. Adequate level of comfort will be maintained. Hemodynamics will remain stable Patient will recover from procedure without complications. Respiratory function will be maintained. Cardiac rhythm will remain stable. Patient temperature will be maintained. Patient and/or family have verbalized understanding of the procedure. Patient Education Chief Complaint/Reason for Test: Cardiac Cath Developmental Category: Adult (18-64 years) Developmentally Appropriate for Age: Yes Learning Barriers: None Education Needs: Procedure Education Method: Verbal Information Taught: Cardiac Cath Educational Evaluation: Able to repeat information Intravenous Access Time IV Size Location DC'd Fluid/Drip Rate Units RN 18g 1 1/" Patent On Arrival Lt Antecubital 0.9NaCl ml/hr Cassie Leach RN 22g 1" Patent On Arrival Rt Arm Cassie Leach RN Allergies ketoprofen codeine Vital Signs Time BP (mmHg) HR (bpm) O2 Sat. RR (bpm) LOC 10:06 AM 166 / 79 53 97 % 10:10 AM 159 / 63 53 98 % 10:16 AM 141 / 80 53 94 % 10:20 AM 136 / 77 51 95 % 10:26 AM 163 / 93 56 95 % 10:30 AM 102 / 51 53 91 % 10:36 AM 128 / 68 69 92 % 10:40 AM 131 / 68 52 90 % 10:47 AM 116 / 49 51 90 % Procedural Medications Time Medication Dose Units Method Given By 10:02 AM Oxygen 2 L/min nasal cannula Cassie Leach RN 10:16 AM Versed 2 mg Intravenous Cassie Leach RN 10:16 AM Fentanyl 50 mcg Intravenous Cassie Leach RN 10:21 AM Lidocaine 2% 0.5 ml Subcutaneous Anderson Lutz MD, FAC 10:23 AM Versed 1 mg Intravenous Cassie Leach RN 10:25 AM Heparin 2000 units Nitroglycerin 200 mcg Verapamil 2.5 mg Intraarterial Anderson Lutz MD, FACC 10:29 AM Nitroglycerin 200 mcg Intracoronary Anderson Lutz MD 10:35 AM Zofran 8 mg Intravenous Cassie Leach RN 10:40 AM Versed 1 mg Intravenous Cassie Leach RN 10:40 AM Fentanyl 25 mcg Intravenous Cassie Leach RN 10:43 AM Aggrastat Bolus: 75 ml Intravenous Cassie Leach RN 10:43 AM Aggrastat 12.5mg/250ml 27 ml Intravenous Cassie Leach RN 10:44 AM Nitroglycerin 200 mcg Intracoronary Anderson Lutz MD 10:54 AM Fentanyl 25 mcg Intravenous Cassie Leach RN 10:56 AM Plavix 600 mg Orally Cassie Leach RN ASA Classification: CLASS II- Mild systemic disease (i.e. well-controlled diabetes, hypertension, asthma, cigarette smoking) Cynthia Score Preprocedure Postprocedure Activity 2- Moves 4 extremities sustained head lift Activity Circulation 2- SBP +/= 20 points of pre-anesthetic level Circulation Consciousness 2- Awake and alert oriented x 3 Consciousness O2 Saturation 2- Able to maintain O2 satruation of 92% on room air O2 Saturation Respiratory 2- Able to deep breathe and cough well Respiratory Total Score 10 Total Score Contrast Agent: Isovue Diagnostic Contrast: 74 ml Total Contrast: 74 ml Fluoro Dose: 4825 mGy Activated Clotting Time Time Seconds to Clot 10:46 AM 314 Procedure Log Time Note Enter By 10:00 AM CathStat 10:01 AM Pt arrived to pharmacy laboratory technician 2 at 10:01 tsites 10:01 AM Aide Duffy RT (R) Position: Monitor Time in: 10:01 tsites 10:01 AM Nigel Romeo RT (R) Position: Scrub Time in: 10:01 tsites 10:01 AM Lucretia Carlson RN Position: [place] Time in: 10:01 tsites 10:01 AM Cassie Leach RN Position: [place] Time in: 10: tsites 10:01 AM Patient charges- Angio tray pack, Navilyst 3mm J, Pulse Oximetry and ACIST tubing and transducer tsites 10:02 AM Physician arrived 10:02 tsites 10:02 AM Meet and greet completed tsites 10: AM Sign in performed according to hospital policy. tsites 10:02 AM Procedure start 10: tsites 10: AM Time: 10: Oxygen on at 2 L/min per nasal cannula by Cassie Leach RN tsites 10:02 AM Time: 10:02 Patient comfortable and pain free: Yes tsites 10:02 AM Clinical Presentation: Unstable angina tsites 10:04 AM Vitals capture started with the following parameters, Patient=Adult, Interval=5 min, Initial Emkkhmnl=318 mmHg, Deflation Rate=5 mmHg, Cuff placed on Right Arm 10:05 AM Recorded ECG: HR=84 Condition=Condition 1 10:06 AM HR=53 bpm, RGAT=692/79 mmhg, SpO2=97.0 % 10:10 AM HR=53 bpm, GWSH=656/63 mmhg, SpO2=98 % 10:15 AM Hair removed from procedure site in holding area using clippers. Right wrist and right groin prepped with Chloraprep by Lucretia Carlson RN, then patient was draped. Skin intact. tsites 10:16 AM HR=53 bpm, ITQO=887/80 mmhg, SpO2=94.0 % 10:16 AM Time: 10:16 Versed 2 mg Intravenous Given by Cassie Leach RN tsites 10:16 AM Time: 10:16 Fentanyl 50 mcg Intravenous Given by Cassie Leach RN tsites 10:17 AM Time: 10:02 Patient comfortable and pain free: Yes tsites 10:20 AM HR=51 bpm, DTVQ=868/77 mmhg, SpO2=95.0 % 10:20 AM Time out performed according to hospital policy tsites 10: AM Time: 10:21 0.5 ml Lidocaine 2% to right radial Subcutaneous Given by Anderson Lutz MD, [facility] tsites 10:23 AM ultrasound utilized for access tsites 10:24 AM Time: 10: Versed 1 mg Intravenous Given by Cassie Leach RN tsites 10:25 AM Access obtained by percutaneous puncture. 6Fr 10cm Terumo Glidesheath sheath placed in right Radial artery. [id number] tsites 10:25 AM Time: 10:25 Patient given 2,000 units Heparin, 200 mcg Nitroglycerin, and 2.5 mg Verapamil Intraarterial by Anderson Lutz MD, [facility]. This is given to reduce risk of vessel spasm and thrombosis. tsites 10:26 AM HR=56 bpm, BOPP=628/93 mmhg, SpO2=95.0 % 10: AM 5Fr TIG catheter inserted over the wire [facility] tsites 10: AM 0.035 260cm Navilyst 3mmJ wire [id number] tsites 10:28 AM RCA angiography performed in multiple views. tsites 10:29 AM Time: 10:29 Nitroglycerin 200 mcg Intracoronary Given by Anderson Lutz MD tsites 10:29 AM Lesion found in Proximal RCA. Pre Stenosis: 50 Pre NAKIA Flow: tsites 10:29 AM Right Coronary, Right Posterior Descending Arteries with Right Posterolateral and Acute Marginal branches with 50 % stenosis. If graft is supplying this area, 0 % stenosis tsites 10:30 AM HR=53 bpm, GLJD=229/51 mmhg, SpO2=91 % 10:31 AM Lesion found in Proximal LAD. Pre Stenosis: 90 Pre NAKIA Flow: 3: Complete and Brisk Flow/Perfusion tsites 10:31 AM Recorded Pressure: Ao, HR=49, Condition=Condition 1 (Aorta) Ao -13/-38/-25 10:31 AM Recorded Pressure: Ao, HR=48, Condition=Condition 1 (Aorta) Ao 100/68/81 10:31 AM Coronary Dominance: right tsites 10:32 AM Proximal Left Anterior Descending Coronary Artery with 90% stenosis. If graft is supplying this territory, 0 % stenosis. tsites 10:32 AM Catheter removed tsites 10:32 AM 5Fr Pigtail catheter inserted over the wire [facility] tsites 10:32 AM Catheter selectively placed in left ventricle tsites 10:33 AM Time: 10:17 Patient comfortable and pain free: Yes tsites 10:34 AM Lesion found in Mid LAD. Pre Stenosis: 50 Pre NAKIA Flow: tsites 10:35 AM Time: 10:35 Zofran 8 mg Intravenous Given by Cassie Leach RN tsites 10:35 AM pt states nausea tsites 10:35 AM Recorded Pressure: LV, HR=55, Condition=Condition 1 (Left Ventricle) LV 125/15/18 10:35 AM Recorded Pressure: LV, Ao, HR=54, Condition=Condition 1 (Left Ventricle) LV 126/15/23, (Aorta) Ao 137/54/95 10:36 AM HR=69 bpm, TYEI=323/68 mmhg, SpO2=92.0 % 10:39 AM PCI Status Urgent tsites 10:39 AM 6Fr RBL 3.5 Convey guide catheter was used to cannulate the PCI vessel successfully. reused? No tsites 10:39 AM .014 Prowater 182cm guide wire across target lesion- successful. reused? No tsites 10:39 AM Inflation device was opened. tsites 10:40 AM Time: 10:40 Versed 1 mg Intravenous Given by Cassie Leach RN tsites 10:40 AM Time: 10:40 Fentanyl 25 mcg Intravenous Given by Cassie Leach RN tsites 10:40 AM HR=52 bpm, PWXO=860/68 mmhg, SpO2=90.0 % 10:41 AM 2.5 mm x 12 mm Emerge Monorail balloon across target lesion- successful. reused? No tsites 10:41 AM Balloon inflated @ 10 krupa for 12 seconds tsites 10:41 AM act drawn tsites 10:42 AM Balloon catheter removed intact. tsites 10:43 AM Time: 10:43 Aggrastat Bolus: 75 ml Intravenous Given by Cassie Leach RN Beach pump tsites 10:43 AM Time: 10:43 Aggrastat 12.5mg/250ml 27 ml Intravenous Given by Cassie Leach RN Beach pump tsites 10:44 AM 2.75mm x 16mm Synergy drug-eluting stent across target lesion- successful Lot #[id number] tsites 10:44 AM Stent deployed @ 12 krupa for 16 seconds tsites 10:44 AM Time: 10:44 Nitroglycerin 200 mcg Intracoronary Given by Anderson Lutz MD tsites 10:45 AM Stent delivery system removed intact. tsites 10:46 AM Guide wire removed intact. tsites 10:46 AM At 10:46 the ACT was 314 seconds. tsites 10:46 AM Guide catheter removed intact. tsites 10:47 AM HR=51 bpm, BVJZ=047/49 mmhg, SpO2=90 % 10:47 AM Procedure completed at 10:47 10/31/2017 tsites 10:47 AM Did you address NAKIA flow and Dominance? Yes tsites 10:48 AM Sign out completed: Radiation Dose 624 mGy, 4825 cGy/cm2 Fluoro Time: 3.9 Isovue 370 - 200ml contrast 74.5 ml given by Anderson Lutz MD, FACC. Complications: NoneCardiac Rehab Consult needed: YesConfirmed administered medications: Yes tsites 10:48 AM Isovue 370 - 200ml,1 Bottle(s) used. tsites 10:48 AM Arterial sheath pulled, Vasc Band closure device used and was Successful S/N. tsites 10:49 AM 12 ml air in Vasc Band. tsites 10:49 AM Estimated Blood Loss: minimal tsites 10:49 AM Post ECG NSR tsites 10:49 AM Post Blood Pressure 116/49 tsites 10:49 AM 10:49 Post Pulses Rt Radial 1+ tsites 10:49 AM Information taught Cardiac Cath, PCI, and Vasc Band tsites 10:49 AM Education needs Procedure, Plan of Care, and Responsibilities of Patient in Care tsites 10:49 AM Learning barriers :None tsites 10:49 AM Education Methods Verbal tsites 10:49 AM Education evaluation Able to repeat information tsites 10:49 AM Site status No bleeding/hematoma - Rt Wrist as reported by Nigel Romeo RT (R) at 10:49 tsites 10:49 AM Plavix, Effient or Brilinta given Yes tsites 10:49 AM Delay to floor No tsites 10:49 AM Patient out of room: 10:49 tsites 10:49 AM no family at this time tsites 10:54 AM Time: 10:54 Fentanyl 25 mcg Intravenous Given by Cassie Leach RN tsites 10:56 AM Time: 10:56 Plavix 600 mg Orally Given by Cassie Leach RN tsites 10:57 AM Plavix, Effient or Brilinta given Yes tsites 10:57 AM Delay to floor Receiving unit staff issue tsites 11:00 AM Report given to noreen WITT Pt taken to E Room #22. 11:00 tsites 11:00 AM Patient out of room: 11:00 tsites Complications Complication None Hemodynamics Pressures Site Systolic/A Wave Diastolic/V Wave Mean AO -13 -38 -25 AO 100 68 81 LV 125 15 18 LV 126 15 23 AO 137 54 95 Post Procedure Information Blood Pressure: 116/49 mmHg Rhythm: NSR Post procedural instructions were given Closure Device Time Device Success/Fail 10/31/2017 10:51:00 AM Mechanical Compression Successful Site Checks Time Location Status Staff Sheath In? Note 10:49 AM Rt Wrist No bleeding/hematoma Nigel Romeo RT (R) Pulses Time Site Pre-Procedure Post-Procedure Note Bilateral DP & PT 1+ Bilateral radial 2+ 10:49:00 AM Rt Radial 1+ Updated by Aide Tati, RT (R) on 10/31/2017 11:02:[address] [facility] RT electronically signed on 10/31/2017 11:03:23 AM with status of Final
[2017-10-31] MEDS ORDERED: Heparin 25,000 UNIT/500 ML D5W 25,000 UNIT/500 ML BAG IVC SCH (11:26)
[2017-10-31] MEDS ORDERED: Tirofiban 12.5 MG/250ML 12.5 MG/250 ML BAG IVC SCH (11:30)
--- NOTE | 2017-10-31 15:18 | Internal Med Progress Note ---
<Deborah Ramírez - Last Filed: 10/31/17 16:09> Date of Encounter: 10/31/17 Time of Encounter: 03:15 - Assessment and plan (1) Atrial fibrillation with RVR Current Visit: Yes Status: Acute Assessment and plan: Patient is off Cardizem drip. Currently on metoprolol 25 mg by mouth twice a day. Patient was recently diagnosed with atrial fibrillation 1 week ago. Etiology of atrial fibrillation includes ischemia, sleep apnea. She had a stress test one day ago and showed left diastolic dysfunction with peserved EF. Today she had a left heart cath and showed 90% blockage at LAD Patient is not anticoagulated secondary to pending approval of xeralto from insurance company. currently on heparin gtt HR under control (2) Essential hypertension Current Visit: No Status: Chronic Assessment and plan: Resolved. Initial blood pressure was high but now controlled. Continue metoprolol home dose. (3) COPD (chronic obstructive pulmonary disease) Current Visit: No Status: Chronic Assessment and plan: Chronic, not acute exacerbation. Continue Symbicort. Qualifiers: COPD type: chronic bronchitis Chronic bronchitis type: simple Qualified Code(s): J41.0 - Simple chronic bronchitis (4) Chest pain Current Visit: Yes Status: Acute Assessment and plan: Patient does not have chest pain today. Her chest pain was substernal worsening with exertion upon admission. Her cath today showed 90% stenosis at LAD and 50% stenosis at RCA. Cardiology is following. Troponins were negative. EKG did not show any signs of ST-T wave abnormalities. LDL 1:15, HDL 34, total cholesterol 170. Continue aspirin, statin, beta flor. On heparin drip Qualifiers: Chest pain type: unspecified Qualified Code(s): R07.9 - Chest pain, unspecified (5) Leukocytosis Current Visit: Yes Status: Resolved Assessment and plan: Resolved, was likely secondary to stress reaction. Qualifiers: Leukocytosis type: unspecified Qualified Code(s): D72.829 - Elevated white blood cell count, unspecified (6) Hyperglycemia Current Visit: Yes Status: Acute Assessment and plan: Stable glucose readings. Patient's hemoglobin A1c is 5.8. Prediabetes. (7) DVT prophylaxis Current Visit: Yes Status: Acute Assessment and plan: On heparin gtt (8) Sleep apnea Current Visit: Yes Status: Acute Assessment and plan: Patient was diagnosis sleep apnea outpatient. She was unable to start the CPAP titration study as her mother . Will consider overnight study when more stable. Will require CPAP outpatient. Qualifiers: Sleep apnea type: obstructive Qualified Code(s): G47.33 - Obstructive sleep apnea (adult) (pediatric) - Time Spent With Patient Total time spent is greater than 50% in coordination of care (as documented) at patient's floor/unit and/or counseling patient: - Subjective Interval history: Ms. Licea was seen at bedside this morning. She was sitting up in bed and did not complain of any concerning symptoms. She denied any new chest pain, palpitations, shortness of breath, fever, chills, nausea, vomiting, neuropathy, headache or blurry vision. This afternoon she had a left heart cath due to an abnormal stress test with mildly dilated right ventricle with normal function and moderate left ventricular diastolic dysfunction and preserved EF of 60%. - Constitutional Vitals: Temp Pulse Resp BP Pulse Ox 97.7 F 54 18 131/70 92 10/31/17 12:00 10/31/17 12:00 10/31/17 12:00 10/31/17 12:00 10/31/17 12:00 General appearance: Present: A&O X 3, no acute distress - Head Head exam: Present: atraumatic, normocephalic - Eye Eye exam: Present: EOMI, sclera anicteric - Neck Neck exam general surgery: Present: full ROM, trachea midline - Respiratory Respiratory exam: Present: CTAB. Absent: rales, rhonchi, wheezes - Cardiovascular Cardiovascular exam: Absent: clicks, gallop, JVD Additional comments: irregularly irregular - GI/Abdominal GI/Abdominal exam: Present: normal bowel sounds, soft. Absent: distended, firm , rigid - Extremities Exam Extremities exam: Present: full ROM, warm. Absent: calf tenderness, pedal edema , tenderness Additional comments: pedal pulses intact bilaterally - Psychiatric Psychiatric exam: Present: normal affect, normal mood - Skin Skin exam: Present: warm. Absent: cyanosis, rash Internal Medicine: Result - Labs CBC & Chem 7: 10/31/17 06:58 10/31/17 06:58 Labs: Short CBC 10/31/17 Range/Units 06:58 WBC 9.5 (4.3-11.1) K/mcL Hgb 13.7 (11.5-15.4) g/dL Hct 41.2 (35.3-44.9) % Plt Count 176 (140-400) K/mcL Neutrophils # 4.7 (1.6-8.9) K/mcL BMP 10/31/17 06:58 Sodium 138 Potassium 3.9 Chloride 108 H Carbon Dioxide 26 BUN 8 Creatinine 0.73 Glucose 110 H Calcium 8.6 - ABG Interpretation ABG results: PT/INR, D-dimer PT 11.4 Seconds (9.4-12.1) 10/27/17 17:40 Consult Discharge Plan - Plan Referrals: Araceli Mcgovern, VISUAL EDUCATION DIRECTOR [Primary Care Provider] - 11/04/17 4:00 pm <Rylie Izaguirre - Last Filed: 10/31/17 17:48> Date of Encounter: 10/31/17 - Assessment and plan (1) Atrial fibrillation with RVR Current Visit: Yes Status: Acute (2) Essential hypertension Current Visit: No Status: Chronic (3) COPD (chronic obstructive pulmonary disease) Current Visit: No Status: Chronic Qualifiers: COPD type: chronic bronchitis Chronic bronchitis type: simple Qualified Code(s): J41.0 - Simple chronic bronchitis (4) Chest pain Current Visit: Yes Status: Acute Qualifiers: Chest pain type: unspecified Qualified Code(s): R07.9 - Chest pain, unspecified (5) Leukocytosis Current Visit: Yes Status: Resolved Qualifiers: Leukocytosis type: unspecified Qualified Code(s): D72.829 - Elevated white blood cell count, unspecified (6) Hyperglycemia Current Visit: Yes Status: Acute (7) DVT prophylaxis Current Visit: Yes Status: Acute (8) Sleep apnea Current Visit: Yes Status: Acute Qualifiers: Sleep apnea type: obstructive Qualified Code(s): G47.33 - Obstructive sleep apnea (adult) (pediatric) - Time Spent With Patient Total time spent is greater than 50% in coordination of care (as documented) at patient's floor/unit and/or counseling patient: - Constitutional Vitals: Temp Pulse Resp BP Pulse Ox 97.7 F 65 17 112/55 94 10/31/17 12:00 10/31/17 15:24 10/31/17 15:24 10/31/17 15:24 10/31/17 15:24 Internal Medicine: Result - Labs CBC & Chem 7: 10/31/17 06:58 10/31/17 06:58 Labs: Short CBC 10/31/17 Range/Units 06:58 WBC 9.5 (4.3-11.1) K/mcL Hgb 13.7 (11.5-15.4) g/dL Hct 41.2 (35.3-44.9) % Plt Count 176 (140-400) K/mcL Neutrophils # 4.7 (1.6-8.9) K/mcL BMP 10/31/17 06:58 Sodium 138 Potassium 3.9 Chloride 108 H Carbon Dioxide 26 BUN 8 Creatinine 0.73 Glucose 110 H Calcium 8.6 - ABG Interpretation ABG results: PT/INR, D-dimer PT 11.4 Seconds (9.4-12.1) 10/27/17 17:40 - Attending Attestation I examined this patient and my medical decision-making was reviewed with the Resident Physician. I agree with the documented findings, disposition and treatment plan as described except to the extent set forth below. 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 Has no complaints of chest pain or shortness of breath. CVS exam and resp exam unchanged, clear breath sounds and irregularly irregular rhythm with normal heart rate. Awaiting Cardiology recommendations post [facility].
[2017-10-31] MEDS ORDERED: *HR* Rivaroxaban 10 MG TABLET PO SCH ×2 (16:00→17:00)
[2017-10-31] MEDS ORDERED: Acetaminophen 325 MG TABLET PO PRN (21:19)
[2017-11-01 04:43] LABS: Basophils # 0.1 K/mcL (0.0-0.2); Basophils % 0.9 %; Eosinophils # 0.5 K/mcL (0.0-0.6); Eosinophils % 4.8 %; Hematocrit 40.2 % (35.3-44.9); Hemoglobin 13.1 g/dL (11.5-15.4); Immature Granulocytes % 0.5 % (0-4); Mean Corpuscular HGB Conc 32.6 g/dL (31.6-35.5); Mean Corpuscular Hemoglobin 29.2 pg (28.0-33.3); Mean Corpuscular Volume 89.7 fL (83.0-100.0); Mean Platelet Volume 10.6 fL (9.4-12.4); Monocytes # 0.7 K/mcL (0.0-1.3); Monocytes % 7.1 %; Neutrophils # 5.1 K/mcL (1.6-8.9); Platelet Count 183 K/mcL (140-400); Red Blood Count 4.48 M/mcL (3.82-4.97); Red Cell Distribution Width 13.6 % (11.5-14.5); Segmented Neutrophils % 48.7 %
[2017-11-01 05:11] LABS: BUN/Creatinine Ratio 13 (6-26); Blood Urea Nitrogen 10 mg/dL (8-23); Calcium 8.7 mg/dL (8.6-10.3); Carbon Dioxide 25 mEq/L (23-29); Chloride 108 mEq/L (98-107); Glucose 97 mg/dL (70-105); Osmolality,Calculated 283 (280-300); Potassium 4.4 mEq/L (3.5-5.1); Sodium 137 mEq/L (136-145); eGFR For African Americans > 60 (> 60); eGFR For Non-African Americans > 60 (> 60)
[2017-11-01 05:12] LABS: Blood Urea Nitrogen 10 mg/dL (8-23); Troponin I < 0.03 ng/mL (< 0.04)
[2017-11-01] MEDS: Budesonide/Formoterol 160/4.5 MDI IH SCH (07:52)
[2017-11-01] MEDS: Aspirin 81 MG TAB.CHEW PO SCH (08:31)
--- NOTE | 2017-11-01 11:22 | Cardiology Progress Note ---
Date of Encounter: 11/01/17 Time of Encounter: 09:00 Assessment and Plan (1) Atrial fibrillation Current Visit: No Status: Chronic Per cardiology: -Recently diagnosed with a.fib. -On BB. -Admitted with a.fib RVR, required cardizem for a short period. -NOw SB, HR 50s. -TTE with LVEF 60%, mildly dilated RV with normal function, moderate diastolic dysfunction, no segmental wall motion abnormalities noted. -Had been recommended for xarelto OP however did not fill since she was awaiting PA from insurance. Xarelto assistance card given to patient. PA pending in office. -Will sign off and will follow in outpatient setting. Follow up set. -Of note, on triple therapy. Educated to [facility] for bleeding closely. Qualifiers: Atrial fibrillation type: paroxysmal Qualified Code(s): I48.0 - Paroxysmal atrial fibrillation (2) Abnormal stress test Current Visit: Yes Status: Acute Per cardiology: -Stress test with Small sized, moderate intensity stress perfusion defect involving the mid to distal inferior wall. Findings represent reversible ischemia. -S/p LHC yesterday with PCI to LAD, has remaining mild-moderate CAD. On asa, plavix, educated on dual anti-platelet therapy uninterrupted for at least one year, unless otherwise directed by cardiology. States understanding. -Denies chest pain. -Right radial access site with no hematoma, mild ecchymosis. 1+ right radial pulse. -Cardiology will sign off and will follow in outpatient setting. Follow up set. Discussion w patient/family: The assessment and plan as outlined above was discussed with the patient who expressed understanding and agreement. All questions were answered. Thank you for involving us in the care of your patient. Please call with any questions. Discussed and reviewed with Subjective Principal diagnosis: a.fib Interval history: Pateint is s/p LHC yesterday for abnormal stress test. Patient denies chest pain. Reported some mild pain after cath at access site, denies current. Objective Vital Signs, Last 4 Hours Temp Pulse Resp BP Pulse Ox 11/01/17 07:55 97.6 F 50 16 137/67 95 11/01/17 07:52 16 97 General: Conversant, No Apparent Distress HEENT: Atraumatic, Normocephaly, Mucus Membranes Moist Neck: No JVD, Normal carotid pulses Cardiac: Reg Rate and Rhythm, Normal S1 and S2, No Murmur Lungs: Normal Breath Sounds, No Wheeze, Rales, Rhonchi Neuro: Alert and responsive, No focal deficits noted Abdomen: Soft, Non-Tender Skin: No rashes noted on visualized skin, Other (Right radial access site without hematoma, mild ecchymosis noted. 1+ right radial pulse noted. ) Musculoskeletal: No Chest Wall Tenderness Extremities: No Clubbing, No Cyanosis, No Edema, Normal Pulses Results 11/01/17 04:19 11/01/17 04:19 Lab Results Active Medications Acetaminophen (Tylenol) 650 mg PO Q6HR PRN PRN Reason: Mild Pain Stop: 05/02/18 21:20 Last Admin: 10/31/17 21:28 Dose: 650 mg Albuterol Sulfate (Albuterol Inhaler) 2 puff IH Q4H PRN PRN Reason: Shortness Of Breath Stop: 04/28/18 20:17 Last Admin: 10/27/17 22:34 Dose: 2 puff Aspirin (Aspirin) 81 mg PO DAILY [facility] Stop: 04/28/18 20:16 Last Admin: 11/01/17 08:31 Dose: 81 mg Atorvastatin Calcium (Lipitor) 20 mg PO HS [facility] Stop: 04/28/18 21:01 Last Admin: 10/31/17 21:28 Dose: 20 mg Budesonide/Formoterol Fumarate (Symbicort) 2 puff IH BIDR [facility] Stop: 04/28/18 22:01 Last Admin: 11/01/17 07:52 Dose: 2 puff Clopidogrel Bisulfate (Plavix) 75 mg PO DAILY [facility] Stop: 05/03/18 09:01 Last Admin: 11/01/17 08:31 Dose: 75 mg Cyclobenzaprine HCl (Flexeril) 5 mg PO BID PRN PRN Reason: Muscle Spasm Last Admin: 10/31/17 05:46 Dose: 5 mg Metoprolol Tartrate (Lopressor) 25 mg PO BID [facility] Stop: 04/28/18 20:16 Last Admin: 11/01/17 08:31 Dose: 25 mg Naloxone HCl (Narcan) 0.4 mg IVP Q2MIN PRN PRN Reason: SEE COMMENTS Stop: 04/28/18 20:00 Nitroglycerin (Nitroglycerin) 0.4 mg SL Q5MIN PRN PRN Reason: Chest Pain Stop: 04/28/18 20:18 Rivaroxaban (Xarelto) 20 mg PO 1700 [facility] Stop: 05/02/18 16:01 Last Admin: 10/31/17 15:45 Dose: 20 mg Laboratory Tests 11/01/17 11/01/17 04:19 04:19 Hgb 13.1 Creatinine 0.77 - Imaging and Cardiology Chest Xray: report reviewed Stress Test: report reviewed Echo: report reviewed Cardiac cath: report reviewed - EKG Interpretation EKG results cardiology: other (Telemetry reviewed with average HR previous 12 hours noted to be 55, SB. PVCs and PACS noted.) Consult Discharge Plan - Plan Referrals: Araceli Mcgovern, SAMINA [Primary Care Provider] - 11/04/17 4:00 pm
[2017-11-01 12:14] VITALS: BP 139/87
--- NOTE | 2017-11-01 13:14 | Discharge Summary ---
<Deborah Ramírez - Last Filed: 11/01/17 14:02> - NOTES TO OUTPATIENT PROVIDER Notes to Outpatient Provider: Ms. Guillen presented to the hospital with sternal chest discomfort and palpitations. She had a fib which was converted with cardizem drip to normal sinus. During her stay she had an echo which showed LVEF 60% with moderated LV dysfunction. She underwent heart cath which which showed 90% LAD blockaged and a stent was placed. She is urged for smoking cessation She has a follow up appointment with the cigarette packing machine operator and is to stay on xarelto. And she is to remain on her current medications, if her heart rate is still alanis, consider decreasing metoprolol from 25 BID to 12.5 BID. Orders not resulted at time of discharge: Pending orders 10/27/17 20:41 NM ramila perf SPECT multi [NM] Routine 10/31/17 10:54 ECG 12 lead ECG [ECG] Stat 11/01/17 06:00 ECG 12 lead ECG [ECG] AM 0600 Date of Encounter: 11/01/17 Time of Encounter: 01:10 - Discharge Diagnosis (1) Atrial fibrillation with RVR Priority: Secondary Status: Chronic Assessment and Plan: Patient is off Cardizem drip. Currently on metoprolol 25 mg by mouth twice a day. Patient was recently diagnosed with atrial fibrillation 1 week ago. Etiology of atrial fibrillation includes ischemia, sleep apnea. She had a stress test one day ago and showed left diastolic dysfunction with preserved EF. S/P LAD stent 11/01/17 Anticoagulated with xarelto Bradycardic without any symptoms (2) Essential hypertension Priority: Secondary Status: Chronic Assessment and Plan: Resolved. Initial blood pressure was high but now controlled. Continue metoprolol home dose. Can consider decreasing metoprolol is heart rate remains low at PCP follow up. (3) COPD (chronic obstructive pulmonary disease) Priority: Secondary Status: Chronic Assessment and Plan: Chronic, not acute exacerbation. Continue Symbicort. Qualifiers: COPD type: chronic bronchitis Chronic bronchitis type: simple Qualified Code(s): J41.0 - Simple chronic bronchitis (4) Chest pain Priority: Secondary Status: Resolved Assessment and Plan: Resolved. Her chest pain was substernal worsening with exertion upon admission. Her cath today showed 90% stenosis at LAD and 50% stenosis at RCA. Troponins were negative. EKG did not show any signs of ST-T wave abnormalities. LDL 1:15, HDL 34, total cholesterol 170. Continue aspirin, statin, beta flor. s/p LAD stent Cardiology will follow outpatient Qualifiers: Chest pain type: unspecified Qualified Code(s): R07.9 - Chest pain, unspecified (5) Leukocytosis Priority: Secondary Status: Resolved Assessment and Plan: Resolved, was likely secondary to stress reaction. Qualifiers: Leukocytosis type: unspecified Qualified Code(s): D72.829 - Elevated white blood cell count, unspecified (6) Hyperglycemia Priority: Secondary Status: Acute Assessment and Plan: Stable glucose readings, today 110. Patient's hemoglobin A1c is 5.8. Prediabetes. (7) Sleep apnea Priority: Secondary Status: Chronic Assessment and Plan: Patient was diagnosis sleep apnea outpatient. She was unable to start the CPAP titration study as her mother . Will require CPAP outpatient. Qualifiers: Sleep apnea type: obstructive Qualified Code(s): G47.33 - Obstructive sleep apnea (adult) (pediatric) (8) DVT prophylaxis Priority: Secondary Status: Acute Assessment and Plan: Was on On heparin gtt at admission (9) Acute coronary syndrome Priority: Primary Status: Acute Assessment and Plan: Underwent Cath and had 90% LAD blockage S/P LAD stent Show consider smoking cessation Continue lipitor, aspirin, plavix and metoprolol Hospital course: Ms. Licea is a 62 year old female who presented to the ED on 10/27/17 du to chest pain, palpiations and lightheadedness. Upon presentation she had a fib with RVR which was converted to normal sinus rhythm with cardizem drip. She is started on xareto during this admission. And was started on her home metoprolol dose. She had an echocardiogram which showed LVEF 60% with moderate left ventricular diastolic dysfunction. She underwent heart cath and showed 90% LAD blockage and underwent LAD stent yesterday. Today she is stable with no complains of chest pain, shortness of breath or heart palpitation. She is urged to quit smoking and follow a cardiac diet that includes low fat and low salt. Discharge discussed with: patient Time spent discussing smoking cessation with patient: 3 to 10 minutes ( Discussed smoking cessation) - Time Spent with Patient Total time spent providing and/or coordinating discharge services: - Discharge Medications Prescriptions: Aspirin 81 mg PO DAILY #30 tab.chew Atorvastatin [Lipitor] 40 mg PO HS #30 tablet Atorvastatin [Lipitor] 40 mg PO HS #30 tablet Clopidogrel [Plavix] 75 mg PO DAILY #30 tablet Clopidogrel [Plavix] 75 mg PO DAILY #30 tablet Rivaroxaban [Xarelto] 20 mg PO DAILY #30 tablet Rivaroxaban [Xarelto] 20 mg PO 1700 #30 tablet Home Medications: Albuterol Sulfate [Proair Hfa] 2 puff IH Q4H PRN 10/18/17 [History] Metoprolol [Lopressor] 25 mg PO BID 10/18/17 [History] Mometasone/Formoterol [Dulera 200 Mcg/5 Mcg Inhaler] 1 puff IH BID 10/18/17 [ History] Furosemide [Lasix] 20 mg PO DAILY 10/27/17 [History] Cyclobenzaprine HCl 5 mg PO BID PRN 10/30/17 [History] Aspirin 81 mg PO DAILY #30 tab.chew 11/01/17 [Rx] Atorvastatin [Lipitor] 40 mg PO HS #30 tablet 11/01/17 [Rx] Atorvastatin [Lipitor] 40 mg PO HS #30 tablet 11/01/17 [Rx] Clopidogrel [Plavix] 75 mg PO DAILY #30 tablet 11/01/17 [Rx] Clopidogrel [Plavix] 75 mg PO DAILY #30 tablet 11/01/17 [Rx] Rivaroxaban [Xarelto] 20 mg PO 1700 #30 tablet 11/01/17 [Rx] Rivaroxaban [Xarelto] 20 mg PO DAILY #30 tablet 11/01/17 [Rx] Allergies/Adverse Reactions: 3 Allergy/AdvReac Type Severity Reaction Status Date / Time codeine AdvReac Vomiting Verified 10/27/17 17:59 ketoprofen AdvReac Hives Verified 10/27/17 17:59 Date of admission: 10/27/17 19:11 Primary care physician: Araceli Mcgovern CNP Consults: 10/27/17 20:16 Consult to Head Usher [CONS] Routine Reason for SW Consult: Discharge plan 10/27/17 23:13 Consult to Cardiology [CONS] Routine Comment: Consulting Provider: Cardiology [place] Reason for Consult: A. fib with RVR, chest pain Call Completed: Yes 10/31/17 10:54 Consult to Cardiac Rehabilitation-Phase1 [CONS] Routine Comment: Reason for Consult: post op PCI Call Completed: Yes Discharging clinician: Deborah Ramírez Anticipated date of discharge: 11/01/17 - Constitutional Vitals: Temp Pulse Resp BP Pulse Ox 97.9 F 55 18 139/87 95 11/01/17 12:12 11/01/17 12:12 11/01/17 12:12 11/01/17 12:12 11/01/17 12:12 General appearance: Present: A&O X 3, morbidly obese, no acute distress - Head Head exam: Present: atraumatic, normocephalic - Eye Eye exam: Present: EOMI, sclera anicteric - ENT ENT exam: Present: mucous membranes moist - Neck Neck exam general surgery: Present: full ROM, trachea midline - Respiratory Respiratory exam: Present: CTAB. Absent: rales, stridor - Cardiovascular Cardiovascular exam: Present: +S1, +S2. Absent: JVD - GI/Abdominal GI/Abdominal exam: Present: normal bowel sounds, soft. Absent: firm, guarding - Extremities Exam Extremities exam: Present: full ROM, warm. Absent: calf tenderness, pedal edema - Skin Skin exam: Present: dry, warm - Patient Status Disposition: Home, Self-Care Condition: Good Functional capacity at discharge: independent ambulation Overall status at discharge: patient is back to baseline (s/p stent, chest pain resolved, no shortness of breath or other symptoms) - Discharge Instructions Instructions: Aspirin (By mouth), Atorvastatin (By mouth), Clopidogrel (By mouth), Rivaroxaban (By mouth), Myocardial Infarction (DC), Atrial Fibrillation (DC), Chest Pain (DC), Heart Healthy Diet (DC), Chronic Obstructive Pulmonary Disease (DC), Chronic Hypertension (DC), Hyperlipidemia (DC), Cigarette Smoking and Your Health, [employer] (GEN) Follow Up With: Araceli Mcgovern SINGING TELEGRAM PERFORMER [Primary Care Provider] - 11/04/17 4:00 pm - Diet and Activity Activity: increase activity as tolerated Diet: low fat, low cholesterol, low salt diet <Rylie Izaguirre - Last Filed: 11/01/17 23:57> Orders not resulted at time of discharge: Pending orders 10/27/17 20:41 NM ramila perf SPECT multi [NM] Routine 10/31/17 10:54 ECG 12 lead ECG [ECG] Stat 11/01/17 06:00 ECG 12 lead ECG [ECG] AM 0600 Date of Encounter: 11/01/17 - Discharge Diagnosis (1) Atrial fibrillation with RVR Status: Chronic (2) Essential hypertension Status: Chronic (3) COPD (chronic obstructive pulmonary disease) Status: Chronic Qualifiers: COPD type: chronic bronchitis Chronic bronchitis type: simple Qualified Code(s): J41.0 - Simple chronic bronchitis (4) Chest pain Status: Resolved Qualifiers: Chest pain type: unspecified Qualified Code(s): R07.9 - Chest pain, unspecified (5) Leukocytosis Status: Resolved Qualifiers: Leukocytosis type: unspecified Qualified Code(s): D72.829 - Elevated white blood cell count, unspecified (6) Hyperglycemia Status: Acute (7) DVT prophylaxis Status: Acute (8) Sleep apnea Status: Chronic Qualifiers: Sleep apnea type: obstructive Qualified Code(s): G47.33 - Obstructive sleep apnea (adult) (pediatric) (9) Acute coronary syndrome Status: Acute Hospital course: Ms. Licea is a 62 year old female - Time Spent with Patient Total time spent providing and/or coordinating discharge services: Date of admission: 10/27/17 19:11 Primary care physician: Araceli Mcgovern CNP Consults: 10/27/17 20:16 Consult to Head Usher [CONS] Routine Reason for SW Consult: Discharge plan 10/27/17 23:13 Consult to Cardiology [CONS] Routine Comment: Consulting Provider: Cardiology [place] Reason for Consult: A. fib with RVR, chest pain Call Completed: Yes 10/31/17 10:54 Consult to Cardiac Rehabilitation-Phase1 [CONS] Routine Comment: Reason for Consult: post op PCI Call Completed: Yes - Constitutional Vitals: Temp Pulse Resp BP Pulse Ox 97.9 F 55 18 139/87 95 11/01/17 12:12 11/01/17 12:12 11/01/17 12:12 11/01/17 12:12 11/01/17 12:12 - Attending Attestation I examined this patient and my medical decision-making was reviewed with the Resident Physician. I agree with the documented findings, disposition and treatment plan as described except to the extent set forth below.
== END 2017-11-01 15:35 | disposition home or self-care (01) ==
LOC: 2NENU 17:19 → EMEROO 17:19 → 2NENU 20:23
PROVIDERS: ADMIT Internal Medicine Nephrology; ATTEND Internal Medicine Nephrology

== ENCOUNTER 2017-11-16 02:21 | Observation (INO) ==
[2017-11-16 02:55] LABS: Basophils # 0.1 K/mcL (0.0-0.2); Basophils % 0.7 %; Eosinophils # 0.4 K/mcL (0.0-0.6); Eosinophils % 3.3 %; Hematocrit 43.4 % (35.3-44.9); Hemoglobin 14.2 g/dL (11.5-15.4); Immature Granulocytes % 0.3 % (0-4); Lymphocytes # 4.6 K/mcL (0.6-4.6); Lymphocytes % 35.3 %; Mean Corpuscular HGB Conc 32.7 g/dL (31.6-35.5); Mean Corpuscular Hemoglobin 28.6 pg (28.0-33.3); Mean Corpuscular Volume 87.5 fL (83.0-100.0); Mean Platelet Volume 10.3 fL (9.4-12.4); Monocytes % 7.3 %; Neutrophils # 6.9 K/mcL (1.6-8.9); Platelet Count 256 K/mcL (140-400); Red Blood Count 4.96 M/mcL (3.82-4.97); Red Cell Distribution Width 13.7 % (11.5-14.5); Segmented Neutrophils % 53.1 %
--- NOTE | 2017-11-16 02:56 | Emergency Department Note ---
Disposition Clinical Impression: Atrial fibrillation with RVR, Palpitations Hypothyroidism Qualifiers: Qualified Code(s): E03.9 - Hypothyroidism, unspecified Disposition: Admitted As Inpatient Condition: Good Time of Disposition: 06:58 Arrhythmia/Palpitations HPI - General Chief Complaint: ED Arrhythmia/Palpitations Stated Complaint: High heart rate Time Seen by Provider: 11/16/17 02:27 Source: patient, family () Mode of arrival: ambulatory Limitations: no limitations Nursing Notes Reviewed: Yes Vital Signs Reviewed: Yes - History of Present Illness HPI Narrative: 62-year-old female history of CAD s/p 1 stent 2 weeks ago along with recent new onset paroxysmal atrial fibrillation on Xarelto presents emergency department for atrial fibrillation with rapid ventricular response. She states 2 hours prior to arrival while laying in bed she felt short of breath with her heart racing and palpitations. She checked her pulse ox which also read her heart rate over 160. Currently the palpitations has improved. She states this feels similar to 2 weeks ago when she was initially diagnosed with atrial fibrillation. At that time she was placed on Cardizem and came down and converted to normal sinus rhythm. She currently is on metoprolol 25 mg BID which she has been taking, and recently her press room supervisor Dr. Lutz wanted to increase it to 50 mg however her heart rate came down to low. She denies any recent illness cough or congestion. She denies any chest pain at this time. She did report some lightheadedness but denies syncope. Denies any other complaints Pt Subjective Complaint: rapid heart beat, "heart racing", irregular heart beat , atrial fibrillation - Related Data Home Medications Medication Instructions Recorded Confirmed Albuterol Sulfate [Proair Hfa] 2 puff IH Q4H PRN 10/18/17 11/16/17 Mometasone/Formoterol [Dulera 200 1 puff IH BID 10/18/17 11/16/17 Mcg/5 Mcg Inhaler] Furosemide [Lasix] 20 mg PO DAILY 10/27/17 11/16/17 Cyclobenzaprine HCl 5 mg PO BID PRN 10/30/17 11/16/17 Lactobacillus Combination No.8 1 cap PO DAILY 11/16/17 11/16/17 [Adult Probiotic] Meclizine HCl [Verticalm] 25 mg PO Q8H PRN 11/16/17 11/16/17 Mv-Mn/FA/Vit K/Lycop/Lut/Coq10 1 cap PO DAILY 11/16/17 11/16/17 [Daily Multivitamin Capsule] raNITIdine HCl [Zantac] 150 mg PO HS 11/16/17 11/16/17 Previous Rx's Medication Instructions Recorded Aspirin 81 mg PO DAILY #30 tab.chew 11/01/17 Atorvastatin [Lipitor] 40 mg PO HS #30 tablet 11/01/17 Clopidogrel [Plavix] 75 mg PO DAILY #30 tablet 11/01/17 Metoprolol [Lopressor] 25 mg PO BID #14 tablet 11/17/17 Rivaroxaban [Xarelto] 20 mg PO 1700 #7 tablet 11/17/17 Allergies Allergy/AdvReac Type Severity Reaction Status Date / Time ketoprofen Allergy Rash Verified 11/16/17 07:23 codeine AdvReac Vomiting Verified 11/16/17 07:23 All systems ED: reviewed and negative except as stated. Review of Systems: As Per HPI Constitutional: Denies: fever, chills Cardiovascular: Reports: palpitations. Denies: chest pain Respiratory: Reports: dyspnea Gastrointestinal: Denies: abdominal pain, nausea, vomiting Genitourinary: Denies: urgency, dysuria Neurological: Denies: headache, weakness, numbness Past Medical History - Past Medical History Attestation: Yes The following information was validated with the patient. Source: patient Medical history: Reports: asthma, atrial fibrillation, COPD, hypertension Surgical history: Reports: other (lumbar fusion) Psychiatric history: Reports: anxiety, depression - Social History Smoking Status: Current every day smoker Smokeless Tobacco Status: No Alcohol use: Reports: none Drug use: Reports: none Physical Exam - General Limitations: no limitations General appearance: alert, in no apparent distress, obese - Head Head exam: atraumatic, normocephalic, normal inspection - Eye Eye exam: Present: normal appearance, PERRL, EOMI - ENT ENT exam: normal exam, normal oropharynx, mucous membranes moist - Neck Neck exam: Present: normal inspection, full ROM, trachea midline. Absent: thyromegaly - Chest Chest inspection: Present: normal inspection, symmetric chest wall rise - Respiratory Respiratory exam: Present: normal lung sounds bilaterally. Absent: respiratory distress, wheezes - Cardiovascular Cardiovascular exam: Present: normal rhythm, tachycardia, irregular rhythm, normal heart sounds - Expanded Cardiovascular Exam Peripheral pulses: 2+: radial (R), radial (L) - Abdominal Exam Abdominal exam: Present: soft, Non-Tender, normal bowel sounds. Absent: tenderness, distention, guarding, rebound, rigidity - Extremities Exam Extremities exam: Present: normal inspection, full ROM, normal capillary refill. Absent: tenderness, pedal edema - Neurological Exam Neurological exam: Present: alert, oriented X3 - Psychiatric Psychiatric exam: Present: normal affect, normal mood - Skin Skin exam: Present: warm, dry, intact, normal color. Absent: rash, cyanosis, diaphoresis Course Course Narrative: Patient presents with palpitations and heart racing 2 hours prior to arrival with associated shortness of breath. History of new onset atrial fibrillation and is found to be and atrial fibrillation with rapid ventricular response. Vital signs are stable. Will trial Cardizem bolus and then drip. She will likely require admission. Suspect likely secondary to poor control with single medication metoprolol for rate control. She denies any infectious source. Workup initiated including TSH. Patients in agreement with this plan. - Reevaluation(s) Reevaluation #1: Patient CSH has gradually increased and is currently at 6. She remains awake alert and oriented. Chest x-ray does not reveal any signs for infection. Troponin is less than 0.03. She does report some increase fatigued recently. No changes in weight gain. No cold or heat intolerance. Suspect this could be a likely contribution to her atrial fibrillation on top of need for better rate control. After that Cardizem bolus her heart rate has come down to 110 to 120. Will attempt to rate control. Time: 03:50 Reevaluation #2: Patient continues to be in atrial fibrillation with the rapid ventricular response as high as 130 and sometimes as low as 90. She has received a total of 5 mg IV Lopressor, 20 mg Cardizem bolus, currently on Cardizem drip 10 mg. Time: 05:32 Reevaluation #3: After IV 5 mg Lopressor patient converted to a bradycardic rhythm 55 beats per minute. She states this is what happened the last time prior to leaving the hospital. Patient remains awake alert and oriented. Repeat EKG shows supraventricular bradycardic rhythm without p wave. At this time patient would benefit admission for further evaluation and monitoring for the atrial fibrillation. Spoke in conjunction with the on-call press room supervisor Dr. Verdugo who agrees that the patient is stable and can be evaluated as an inpatient. Patient is in agreement with this plan. Impression is atrial fibrillation with rapid ventricular response now in a supraventricular bradycardic rhythm, palpitations resolved and elevated TSH. Time: 06:31 - Consultations Consultation #1: Spoke to the on-call press room supervisor Dr. Verdugo he does agree with attempts to rate control her and possibly discharge home. He recommends increasing her metoprolol to 50 mg BID versus introduction of new rate control medication Cardizem. At this time will give her IV Lopressor 5 mg and monitor and as long as her heart rate remains below 100 she will be stable for discharge home with continue outpatient follow-up. She has appointment with her press room supervisor Dr. Lutz on Tuesday will have her call the office for an earlier appointment. Patient is in agreement with this plan. Time: 06:10 Consultation #2: Spoke with on-call hospitalist mark Strong to admit for afib c RVR with now bradycardia of 50s without p waves and stable blood pressure of 131/77. No further orders at this time Time: 07:01 Vital Signs Temperature 98.2 F 11/16/17 02:22 Pulse Rate 165 11/16/17 02:22 Respiratory Rate 20 11/16/17 02:22 Blood Pressure 0/0 11/16/17 02:22 O2 Sat by Pulse Oximetry 97 11/16/17 02:22 Temperature 98.2 F 11/17/17 07:03 Pulse Rate 75 11/17/17 07:03 Respiratory Rate 16 11/17/17 07:32 Blood Pressure 116/58 11/17/17 07:03 O2 Sat by Pulse Oximetry 96 11/17/17 07:32 Oxygen Delivery Oxygen Delivery Room Air Arrhythmia/Palpitations - MDM Narrative Medical decision making narrative: Patient was discussed with my attending physician who agrees with ED management and final disposition. They independently evaluated the patient. Please refer to their attestation to this encounter for additional information. This note was generated by [email or web address] voice recognition software and as a result grammatical or spelling errors may occur using this program. - Medical Records Medical records reviewed: Yes I reviewed the patient's medical records. - Lab Data Lab results reviewed: Yes I reviewed the patient's lab results. Result diagrams: 11/17/17 03:52 11/17/17 03:52 Lab Results 11/16/17 11/16/17 11/16/17 Range/Units 02:43 02:43 02:43 WBC 13.0 H (4.3-11.1) K/mcL RBC 4.96 (3.82-4.97) M/mcL Hgb 14.2 (11.5-15.4) g/dL Hct 43.4 (35.3-44.9) % MCV 87.5 (83.0-100.0) fL MCH 28.6 (28.0-33.3) pg MCHC 32.7 (31.6-35.5) g/dL RDW 13.7 (11.5-14.5) % Plt Count 256 (140-400) K/mcL MPV 10.3 (9.4-12.4) fL Immature Gran % 0.3 (0-4) % Seg Neutrophils % 53.1 % Lymphocytes % 35.3 % Monocytes % 7.3 % Eosinophils % 3.3 % Basophils % 0.7 % Neutrophils # 6.9 (1.6-8.9) K/mcL Lymphocytes # 4.6 (0.6-4.6) K/mcL Monocytes # 1.0 (0.0-1.3) K/mcL Eosinophils # 0.4 (0.0-0.6) K/mcL Basophils # 0.1 (0.0-0.2) K/mcL PT 19.7 H (9.4-12.1) Seconds INR 1.7 APTT 46.1 H (26.0-36.0) Seconds Sodium 138 (136-145) mEq/L Potassium 3.8 (3.5-5.1) mEq/L Chloride 108 H (98-107) mEq/L Carbon Dioxide 22 L (23-29) mEq/L BUN 11 (8-23) mg/dL Creatinine 0.81 (0.60-1.20) mg/dL Est GFR ( Amer) > 60 (> 60) Est GFR (Non-Af Amer) > 60 (> 60) BUN/Creatinine Ratio 14 (6-26) Glucose 119 H (70-105) mg/dL Calculated Osmolality 287 (280-300) Calcium 9.2 (8.6-10.3) mg/dL Troponin I < 0.03 (< 0.04) ng/mL TSH 6.247 H (0.340-5.600) mcIU/mL - Radiology Data Radiology results reviewed: Yes I reviewed the patient's radiology results. Chest X-Ray 11/16/17 02:35 IMPRESSION: Negative portable chest. D/ / Andrea Tejeda MD / Andrea Tejeda MD Interpreting Provider: Andrea Tejeda MD - EKG Data EKG attestation: Yes I reviewed and interpreted this EKG. EKG results narrative: EKG performed 0252 atrial fibrillation with rapid ventricular response 139 beats per minute, normal axis, there are wave progression, no ST elevation or depression, QRS 101. Critical Care Time Critical Care Time: Yes Total Critical Care Time: 35 Attestation: DR Casas Attestation; a fib with rvr, multiple rate control meds needed, DR Casas Attestation Statement - Attestation Attestation: DR Casas note: Pt seen in conjunction w/ resident Dr Méndez: Patient presented with atrial fibrillation with RVR. New-onset was a couple weeks ago. Rate improved in the ER after multiple doses of rate control medicine. I was in the 50s and patient no longer had symptoms. Plan is been coordinated with the outpatient press room supervisor Dr. Verdugo. If pt's rythm converts to sinus w/ stable vitals she will be stable for d/c, and if remains a w/o P waves will be admitted to the hospital for further monitoring;
[2017-11-16 03:02] LABS: INR 1.7; Prothrombin Time 19.7 Seconds (9.4-12.1)
[2017-11-16 03:05] LABS: Activated Partial Thrombo Time 46.1 Seconds (26.0-36.0)
[2017-11-16 03:16] LABS: BUN/Creatinine Ratio 14 (6-26); Blood Urea Nitrogen 11 mg/dL (8-23); Calcium 9.2 mg/dL (8.6-10.3); Carbon Dioxide 22 mEq/L (23-29); Chloride 108 mEq/L (98-107); Glucose 119 mg/dL (70-105); Osmolality,Calculated 287 (280-300); Potassium 3.8 mEq/L (3.5-5.1); Sodium 138 mEq/L (136-145); eGFR For Non-African Americans > 60 (> 60)
[2017-11-16 03:17] LABS: Troponin I < 0.03 ng/mL (< 0.04)
[2017-11-16 03:30] LABS: Thyroid Stimulating Hormone 6.247 mcIU/mL (0.340-5.600)
[2017-11-16] MEDS ORDERED: *HR* Metoprolol 5 MG/5 ML VIAL IVP ONE ×3 (04:20→06:06)
[2017-11-16] MEDS ORDERED: Verapamil 5 MG/2 ML VIAL IVP ONE (05:33)
[2017-11-16] MEDS ORDERED: Verapamil 5 MG/2 ML VIAL ONE (05:33)
[2017-11-16] MEDS ORDERED: Diltiazem CD (24hr) 120 MG CAPSULE PO ONE (05:54)
[2017-11-16] MEDS ORDERED: Diltiazem CD (24hr) 120 MG CAPSULE PO SCH (09:00)
[2017-11-16] MEDS ORDERED: Naloxone 0.4 MG/ML INJ IVP PRN (09:55)
--- NOTE | 2017-11-16 10:26 | Cardiology Consult Note ---
Date of Encounter: 11/16/17 Time of Encounter: 09:15 Assessment and Plan (1) Atrial fibrillation with RVR Current Visit: Yes Status: Chronic Per cardiology: -Known history of paroxysmal atrial fibrillation. -In outpatient setting on lopressor 25mg BID and xarelto currently for anticoagulation (plan to swtich to coumadin after out of xarelto for cost). -Admitted with a.fib RVR, was given multiple doses of IV meds. -Converted to SR. Initial ECG appeared junctional. At bedside, currently sinus rhythm, HR 50-60s at bedside. -Hypothyroidism noted-management per primary service. -Last TTE 10/28/17 with LVEF 60%, moderate diastolic dysfunction, mildly dilated RV with normal function, no segmental wall motion abnormalities noted. -Sleep study pending in outpatient setting. -Discussed with patient regarding taking additional lopressor if tachycardic at home, then present to ER if remains tachycardic. -Agree with sleep study as outpatient. -Hypothyroidism, management per primary service. -Outpatient referral to EP. (2) CAD (coronary artery disease) Current Visit: Yes Status: Acute Per cardiology: -Known CAD s/p [facility] for abnormal stress test, 10/31/17 with 90% proximal LAD with CIERA placed, 50% mid LAD, 40% proximal RCA. -On asa, plavix, statin, BB. -Denies chest pain. -Troponin negative. -Continue dual anti-platelet therapy. Continue current regimen. Qualifiers: Coronary Disease-Associated Artery/Lesion type: [place] artery [place] vs. transplanted heart: [place] heart Associated angina: without angina Qualified Code(s): I25.10 - Atherosclerotic heart disease of [place] coronary artery without angina pectoris Discussion w patient/family: The assessment and plan as outlined above was discussed with the patient who expressed understanding and agreement. All questions were answered. Thank you for involving us in the care of your patient. Please call with any questions. Discussed and reviewed with . History of Present Illness Consult date: 11/16/17 Requesting physician: Claudio Méndez Consult reason: a.fib RVR Chief complaint: Palpitations. History of present illness: Ms. Licea is a 62 year old female with a relevant past medical history of PAF , CAD s/p recent stenting, GERD, depression, anxiety, bipolar, COPD, asthma, fibromyalgia, raynaud's who presented to [facility] with complaints of palpitations, rapid heart beat. Patient states symptoms started yesterday evening when she first noticed some nausea. Then she stated at bedtime yesterday, noticed palpitations, rapid HR. States she checked her HR per pulse ox and it was reading 140s. Patient states she tried to calm down, drink water, rest without improvement of symptoms so she decided to present to ER. Patient denies current symptoms. Denies chest pain. Denies worsening shortness of breath. Past Med Surg Social Fam HX - Past Medical History Attestation: Yes The following information was validated with the patient. Source: patient, old records reviewed Medical history: asthma, atrial fibrillation, COPD, hypertension Additional medical history: basal cell carcioma on face Psychiatric history: anxiety, depression - Past Surgical History Surgical History: other Additional surgical history: several back surgeries. neck surgery. spine surgery - Social History Smoking Status: Current every day smoker Packs per day: 0.5 Smokeless Tobacco Status: No Alcohol use: none Drug use: none - Family History Father Age: 52 Living Status: Age at : 52 Cause of : massive heart attack Hx Family Cardiac Disorders: Yes (htn) Mother Age: 83 Living Status: Age at : 83 Cause of : pancreatice cancer Hx Family Cardiac Disorders: Yes (htn) Hx Family Respiratory Disorders: No Hx Family Cancer: Yes (pancreatatic) Hx Family GI Disorders: No Hx Family Endocrine Disorder: Yes (hypothyrodism) Medications and Allergies Albuterol Sulfate [Proair Hfa] 2 puff IH Q4H PRN 10/18/17 [History] Metoprolol [Lopressor] 25 mg PO BID 10/18/17 [History] Mometasone/Formoterol [Dulera 200 Mcg/5 Mcg Inhaler] 1 puff IH BID 10/18/17 [ History] Furosemide [Lasix] 20 mg PO DAILY 10/27/17 [History] Cyclobenzaprine HCl 5 mg PO BID PRN 10/30/17 [History] Aspirin 81 mg PO DAILY #30 tab.chew 11/01/17 [Rx] Atorvastatin [Lipitor] 40 mg PO HS #30 tablet 11/01/17 [Rx] Clopidogrel [Plavix] 75 mg PO DAILY #30 tablet 11/01/17 [Rx] Rivaroxaban [Xarelto] 20 mg PO 1700 #30 tablet 11/01/17 [Rx] Lactobacillus Combination No.8 [Adult Probiotic] 1 cap PO DAILY 11/16/17 [ History] Meclizine HCl [Verticalm] 25 mg PO Q8H PRN 11/16/17 [History] Mv-Mn/FA/Vit K/Lycop/Lut/Coq10 [Daily Multivitamin Capsule] 1 cap PO DAILY 11/16 [History] raNITIdine HCl [Zantac] 150 mg PO HS 11/16/17 [History] 3 Allergy/AdvReac Type Severity Reaction Status Date / Time ketoprofen Allergy Rash Verified 11/16/17 07:23 codeine AdvReac Vomiting Verified 11/16/17 07:23 All Systems Review: The remainder of the systems were reviewed and are negative - Cardiovascular Cardiovascular: as per HPI, palpitations, rapid heart rate Physical Examination Vital Signs, Last 4 Hours Temp Pulse Resp BP Pulse Ox 11/16/17 09:07 93 11/16/17 08:15 97.6 F 62 19 141/78 93 11/16/17 07:40 20 115/63 General: Conversant, No Apparent Distress HEENT: Atraumatic, Normocephaly, Mucus Membranes Moist Neck: No JVD, Normal carotid pulses Cardiac: Reg Rate and Rhythm, Normal S1 and S2, No Murmur Lungs: Normal Breath Sounds, No Wheeze, Rales, Rhonchi Neuro: Alert and responsive, No focal deficits noted Abdomen: Soft, Non-Tender Skin: No rashes noted on visualized skin Musculoskeletal: No Chest Wall Tenderness Extremities: No Clubbing, No Cyanosis, No Edema, Normal Pulses Results 11/16/17 02:43 11/16/17 02:43 Impressions Chest X-Ray 11/16/17 02:35 IMPRESSION: Negative portable chest. D/ / Andrea Tejeda MD / Andrea Tejeda MD Interpreting Provider: Andrea Tejeda MD Active Medications Albuterol Sulfate (Albuterol Inhaler) 2 puff IH Q4H PRN PRN Reason: Shortness Of Breath Stop: 05/18/18 09:58 Aspirin (Aspirin) 81 mg PO DAILY THAD Stop: 05/19/18 09:01 Atorvastatin Calcium (Lipitor) 40 mg PO HS THAD Stop: 05/18/18 21:01 Clopidogrel Bisulfate (Plavix) 75 mg PO DAILY [facility] Stop: 05/19/18 09:01 Furosemide (Lasix) 20 mg PO DAILY [facility] Stop: 05/19/18 09:01 Naloxone HCl (Narcan) 0.4 mg IVP Q2MIN PRN PRN Reason: SEE COMMENTS Stop: 05/18/18 09:56 Non-Formulary Medication (Cyclobenzaprine Hcl [Cyclobenzaprine Hcl]) 5 mg PO BID PRN PRN Reason: Muscle Spasm Non-Formulary Medication (Lactobacillus Combination No.8 [Adult Probiotic]) 1 cap PO DAILY [facility] Stop: 05/19/18 09:01 Non-Formulary Medication (Meclizine Hcl [Verticalm]) 25 mg PO Q8H PRN PRN Reason: Vertigo Non-Formulary Medication (Mometasone/Formoterol [Dulera 200 Mcg/5 Mcg Inhaler]) 1 puff IH BID [facility] Stop: 05/18/18 21:01 Non-Formulary Medication (Mv-Mn/Fa/Vit K/Lycop/Lut/Coq10 [Daily Multivitamin Capsule]) 1 cap PO DAILY [facility] Stop: 05/19/18 09:01 Non-Formulary Medication (Ranitidine Hcl [Zantac]) 150 mg PO HS [facility] Stop: 05/18/18 21:01 Non-Formulary Medication (Rivaroxaban [Xarelto]) 20 mg PO 1700 [facility] Stop: 05/18/18 17:01 Laboratory Tests 11/16/17 11/16/17 02:43 02:43 WBC 13.0 H Hgb 14.2 Potassium 3.8 Creatinine 0.81 Troponin I < 0.03 TSH 6.247 H - Imaging and Cardiology Chest Xray: report reviewed Stress Test: report reviewed Echo: report reviewed Cardiac cath: report reviewed - EKG Interpretation EKG results cardiology: personally reviewed (ECG with beltran RVR, HR 139.), other (Telemetry reviewed with average HR 56, SB.) Consult Discharge Plan - Plan Referrals: Araceli Mcgovern, [employer] [Primary Care Provider] -
--- NOTE | 2017-11-16 11:08 | Internal Med History&Physical ---
Date of Encounter: 11/16/17 Time of Encounter: 10:30 Internal Medicine - H&P: HPI Chief complaint: palpitations History of present illness: Ms. Licea is a 62 year old female with PMHx of CAD s/p PCI 2 weeks ago, recently diagnosed pAF, presented to the ED with 2-3 day history of "uneasiness in her chest". Does not describe it as pain or palpitation per se but had odd discomfort in her chest and throat. Denies SOB, cough, sputum production, fever/ chills, N/V, or diaphoresis. No GI/ symptoms. Endorses compliance to her DAPT , bb, and xarelto. In the ED, she was noted to be tachycardic at 160s with stable BP. Afebrile. Labs were largely unremarkable except for mild leukocytosis and TSH 6.247. Troponin -ve x 2, EKG Afib with RVR no ST elevations. Patient was given a total of 10mg of IV lopressor, 40mg of IV diltiazem, and 5mg of IV verapamil which brought HR down to 50s. She was then admitted for further management. Past Med Surg Social Fam HX - Past Medical History Attestation: Yes The following information was validated with the patient. 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 neck surgery. spine surgery - Social History Smoking Status: Current every day smoker Packs per day: 0.5 Smokeless Tobacco Status: No Alcohol use: none Drug use: none - Family History Father Age: 52 Living Status: Age at : 52 Cause of : massive heart attack Hx Family Cardiac Disorders: Yes (htn) Mother Age: 83 Living Status: Age at : 83 Cause of : pancreatice cancer Hx Family Cardiac Disorders: Yes (htn) Hx Family Respiratory Disorders: No Hx Family Cancer: Yes (pancreatatic) Hx Family GI Disorders: No Hx Family Endocrine Disorder: Yes (hypothyrodism) Internal Medicine - H&P: Meds Albuterol Sulfate [Proair Hfa] 2 puff IH Q4H PRN 10/18/17 [History] Metoprolol [Lopressor] 25 mg PO BID 10/18/17 [History] Mometasone/Formoterol [Dulera 200 Mcg/5 Mcg Inhaler] 1 puff IH BID 10/18/17 [ History] Furosemide [Lasix] 20 mg PO DAILY 10/27/17 [History] Cyclobenzaprine HCl 5 mg PO BID PRN 10/30/17 [History] Aspirin 81 mg PO DAILY #30 tab.chew 11/01/17 [Rx] Atorvastatin [Lipitor] 40 mg PO HS #30 tablet 11/01/17 [Rx] Clopidogrel [Plavix] 75 mg PO DAILY #30 tablet 11/01/17 [Rx] Rivaroxaban [Xarelto] 20 mg PO 1700 #30 tablet 11/01/17 [Rx] Lactobacillus Combination No.8 [Adult Probiotic] 1 cap PO DAILY 11/16/17 [ History] Meclizine HCl [Verticalm] 25 mg PO Q8H PRN 11/16/17 [History] Mv-Mn/FA/Vit K/Lycop/Lut/Coq10 [Daily Multivitamin Capsule] 1 cap PO DAILY 11/16 [History] raNITIdine HCl [Zantac] 150 mg PO HS 11/16/17 [History] 3 Allergy/AdvReac Type Severity Reaction Status Date / Time ketoprofen Allergy Rash Verified 11/16/17 07:23 codeine AdvReac Vomiting Verified 11/16/17 07:23 All Systems PM: A 10-system review of systems was performed and is negative for pertinent findings except as documented above in the HPI. - Constitutional Vitals: Temp Pulse Resp BP Pulse Ox 97.5 F L 67 18 138/76 99 11/16/17 10:55 11/16/17 10:55 11/16/17 10:55 11/16/17 10:55 11/16/17 10:55 Exam: General: Alert and oriented, not in distress HEENT:EOM, pupils equal, round, and reactive. Cardiovascular:Normal S1 & S2, no murmurs or gallops. No JVD. Pulse regular. Normal rate Lungs:Normal breath sounds, no wheezes or crackles. Abdomen:Soft, non-tender, no rigidity. Extremities:No deformity, no edema or tenderness, no joint swelling. Neurological:Normal cognition and motor skills. Skin:Normal color, no rash, no lesions. Pulses:Carotid and radial pulses normal +2. Rest of the physical exam is non-contributory Internal Med - H&P Results - Labs CBC & Chem 7: 11/16/17 02:43 11/16/17 02:43 Labs: Cardiac Enzymes 11/16/17 Range/Units 10:15 Troponin I < 0.03 (< 0.04) ng/mL - Assessment and plan (1) Atrial fibrillation with RVR Current Visit: Yes Status: Chronic Assessment and plan: converted back to NSR after multiple doses of IV meds on metoprolol 25mg BID and xarelto at home may require slightly higher dose of bb for rate control but according to the patient, she developed symptomatic bradycardia on it Will defer further decision to cardiology ACS ruled out Echo recently done so no need to repeat (2) CAD (coronary artery disease) Current Visit: No Status: Chronic Assessment and plan: stable, troponin -ve x 2 continue DAPT, statin, bb Qualifiers: Coronary Disease-Associated Artery/Lesion type: [place] artery [place] vs. transplanted heart: [place] heart Associated angina: without angina Qualified Code(s): I25.10 - Atherosclerotic heart disease of [place] coronary artery without angina pectoris (3) Hypothyroidism Current Visit: Yes Status: Acute Assessment and plan: TSH mildly elevated, not reliable in acute hospitalization setting hypothyroidism will not explain bouts of Afib with RVR anyways recommend follow up in 4-6 weeks with PCP Qualifiers: Qualified Code(s): E03.9 - Hypothyroidism, unspecified (4) DVT prophylaxis Current Visit: No Status: Acute Assessment and plan: xarelto - Time Spent With Patient Total time spent is greater than 50% in coordination of care (as documented) at patient's floor/unit and/or counseling patient:
[2017-11-16] MEDS ORDERED: *HR* Rivaroxaban 10 MG TABLET PO SCH (17:00)
[2017-11-16] MEDS: Budesonide/Formoterol 160/4.5 MDI IH SCH (20:38)
[2017-11-16] MEDS ORDERED: Famotidine 20 MG TABLET PO SCH (21:00)
--- NOTE | 2017-11-16 21:08 | Electrocardiograph Report ---
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
--- NOTE | 2017-11-16 21:08 | Electrocardiograph Report ---
[facility] Test Date: 2017-11-16 Pat Name: Tequila Licea Department: 104 Room: 2NE18 Gender: F Galvanizer: : 1955 Requested By: Claudio Méndez Order Number: [id number] Reading MD: Kendall Stevens Measurements Intervals [place] Rate: 50 P: [place]: 0 QRS: 68 QRSD: 105 T: 63 QT: 393 QTc: 367 Interpretive Statements SUPRAVENTRICULAR BRADYCARDIA ABNORMAL RHYTHM ECG Electronically Signed On 11-16-2017 21:06:42 EDT by Kendall Stevens
[2017-11-17 04:22] LABS: Basophils # 0.1 K/mcL (0.0-0.2); Basophils % 0.8 %; Eosinophils # 0.5 K/mcL (0.0-0.6); Eosinophils % 4.4 %; Hematocrit 38.9 % (35.3-44.9); Hemoglobin 12.8 g/dL (11.5-15.4); Immature Granulocytes % 0.4 % (0-4); Lymphocytes # 4.4 K/mcL (0.6-4.6); Lymphocytes % 40.4 %; Mean Corpuscular HGB Conc 32.9 g/dL (31.6-35.5); Mean Corpuscular Hemoglobin 28.6 pg (28.0-33.3); Mean Platelet Volume 10.4 fL (9.4-12.4); Monocytes # 0.8 K/mcL (0.0-1.3); Monocytes % 7.6 %; Platelet Count 221 K/mcL (140-400); Red Blood Count 4.47 M/mcL (3.82-4.97); Red Cell Distribution Width 13.8 % (11.5-14.5); Segmented Neutrophils % 46.4 %
[2017-11-17 04:38] LABS: BUN/Creatinine Ratio 16 (6-26); Blood Urea Nitrogen 12 mg/dL (8-23); Calcium 8.8 mg/dL (8.6-10.3); Carbon Dioxide 23 mEq/L (23-29); Chloride 109 mEq/L (98-107); Glucose 100 mg/dL (70-105); Magnesium 2.1 mg/dL (1.6-2.6); Osmolality,Calculated 286 (280-300); Potassium 3.6 mEq/L (3.5-5.1); Sodium 138 mEq/L (136-145); eGFR For Non-African Americans > 60 (> 60)
[2017-11-17 07:04] VITALS: BP 116/58
[2017-11-17] MEDS: Budesonide/Formoterol 160/4.5 MDI IH SCH (07:32)
[2017-11-17] MEDS ORDERED: Multivit/Ca/Min/Fe/FA 1 TAB TABLET PO SCH (09:00)
[2017-11-17] MEDS ORDERED: Aspirin 81 MG TAB.CHEW PO SCH (09:00)
[2017-11-17] MEDS ORDERED: Furosemide 20 MG TABLET PO SCH (09:00)
[2017-11-17] MEDS ORDERED: Lactobacillus 1 EACH CAP.SPRINK PO SCH (09:00)
--- NOTE | 2017-11-17 09:49 | Discharge Summary ---
<Antoinette Saravia N - Last Filed: 11/17/17 09:44> Date of Encounter: 11/17/17 Time of Encounter: 09:44 - Discharge Diagnosis (1) Atrial fibrillation with RVR Priority: Primary Status: Chronic (2) Hypothyroidism Priority: Secondary Status: Acute Qualifiers: Qualified Code(s): E03.9 - Hypothyroidism, unspecified (3) CAD (coronary artery disease) Priority: Secondary Status: Chronic Qualifiers: Coronary Disease-Associated Artery/Lesion type: [place] artery [place] vs. transplanted heart: [place] heart Associated angina: without angina Qualified Code(s): I25.10 - Atherosclerotic heart disease of [place] coronary artery without angina pectoris Hospital course: Ms. Licea is a 62 year old female with history of atrial fibrillation and recent C with stent placement. She presented to the ED last night due to palpitations. She was treated in the ED with cardizem, and was successfully converted to sinus rhythm. She was evaluated overnight for recurrence or symptoms prior to discharge. Discharge discussed with: patient, nurse - Time Spent with Patient Total time spent providing and/or coordinating discharge services: - Discharge Medications Prescriptions: Metoprolol [Lopressor] 25 mg PO BID #14 tablet Rivaroxaban [Xarelto] 20 mg PO 1700 #7 tablet Home Medications: Albuterol Sulfate [Proair Hfa] 2 puff IH Q4H PRN 10/18/17 [History] Mometasone/Formoterol [Dulera 200 Mcg/5 Mcg Inhaler] 1 puff IH BID 10/18/17 [ History] Furosemide [Lasix] 20 mg PO DAILY 10/27/17 [History] Cyclobenzaprine HCl 5 mg PO BID PRN 10/30/17 [History] Aspirin 81 mg PO DAILY #30 tab.chew 11/01/17 [Rx] Atorvastatin [Lipitor] 40 mg PO HS #30 tablet 11/01/17 [Rx] Clopidogrel [Plavix] 75 mg PO DAILY #30 tablet 11/01/17 [Rx] Lactobacillus Combination No.8 [Adult Probiotic] 1 cap PO DAILY 11/16/17 [ History] Meclizine HCl [Verticalm] 25 mg PO Q8H PRN 11/16/17 [History] Mv-Mn/FA/Vit K/Lycop/Lut/Coq10 [Daily Multivitamin Capsule] 1 cap PO DAILY 11/16 [History] raNITIdine HCl [Zantac] 150 mg PO HS 11/16/17 [History] Metoprolol [Lopressor] 25 mg PO BID #14 tablet 11/17/17 [Rx] Rivaroxaban [Xarelto] 20 mg PO 1700 #7 tablet 11/17/17 [Rx] Allergies/Adverse Reactions: 3 Allergy/AdvReac Type Severity Reaction Status Date / Time ketoprofen Allergy Rash Verified 11/16/17 07:23 codeine AdvReac Vomiting Verified 11/16/17 07:23 Date of admission: 11/16/17 07:29 Primary care physician: Araceli Mcgovern CNP Discharging clinician: Antoinette Saravia Anticipated date of discharge: 11/17/17 - Constitutional Vitals: Temp Pulse Resp BP Pulse Ox 98.2 F 75 16 116/58 96 11/17/17 07:03 11/17/17 07:03 11/17/17 07:32 11/17/17 07:03 11/17/17 07:32 Exam: * General: Pleasant female in no acute distress. She is alert and oriented, and answers questions appropriately. * HEENT: Atraumatic and normocephalic. * Cardiovascular: Normal sinus rhythm. No gallops, murmurs, or rubs. * Respiratory: Clear to auscultation bilaterally. No accessory muscle use. * Extremities: No clubbing or cyanosis. Moderate bilateral LE edema that is non- pitting. 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 Continue taking xarelto and aspirin. Follow up with your service or work dispatcher chief as scheduled. Follow up with your PCP in 3-5 days. Return to the emergency department if symptoms recur or if new concerns arise. - Diet and Activity Activity: increase activity as tolerated Diet: low fat, low cholesterol <Olivia Cerdapelon - Last Filed: 11/17/17 16:41> Date of Encounter: 11/17/17 - Discharge Diagnosis (1) Atrial fibrillation with RVR Status: Chronic (2) Hypothyroidism Status: Acute Qualifiers: Qualified Code(s): E03.9 - Hypothyroidism, unspecified (3) CAD (coronary artery disease) Status: Chronic Qualifiers: Coronary Disease-Associated Artery/Lesion type: [place] artery [place] vs. transplanted heart: [place] heart Associated angina: without angina Qualified Code(s): I25.10 - Atherosclerotic heart disease of [place] coronary artery without angina pectoris Hospital course: Ms. Licea is a 62 year old female - Time Spent with Patient Total time spent providing and/or coordinating discharge services: Date of admission: 11/16/17 07:29 Primary care physician: Araceli Mcgovern CNP - Constitutional Vitals: Temp Pulse Resp BP Pulse Ox 98.2 F 75 16 116/58 96 11/17/17 07:03 11/17/17 07:03 11/17/17 07:32 11/17/17 07:03 11/17/17 07:32 - Attending Attestation I examined this patient and my medical decision-making was reviewed with the Resident Physician Dr. Saravia. I agree with the documented findings, disposition and treatment plan as described except to the extent set forth below. Ms. Licea is a 62 year old female with PMHx of CAD s/p PCI 2 weeks ago, recently diagnosed pAF, presented to the ED with 2-3 day history of "uneasiness in her chest". Does not describe it as pain or palpitation per se but had odd discomfort in her chest and throat. Denies SOB, cough, sputum production, fever/ chills, N/V, or diaphoresis. No GI/ symptoms. Endorses compliance to her DAPT , bb, and xarelto. In the ED, she was noted to be tachycardic at 160s with stable BP.Patient was given a total of 10mg of IV lopressor, 40mg of IV diltiazem, and 5mg of IV verapamil which brought HR down to 60s. Afebrile. Troponin -ve x 2, Her HR well controlled with home PO Med Metorpolol. So will d/ c her home on same med. Gen: A, A, O x 3 Chest: Diminished BS b/l Heart: S1S2+ Afib
== END 2017-11-17 12:47 | disposition home or self-care (01) ==
LOC: EMEROO 02:21 → 2NENU 07:29 → INTOOBSV 07:29 → 2NENU 07:50
PROVIDERS: ADMIT Internal Medicine; ATTEND Family Medicine

== ENCOUNTER 2018-03-06 12:10 | Observation (INO) ==
--- NOTE | 2018-03-06 11:18 | History & Physical Report ---
Date of Encounter: 03/06/18 Time of Encounter: 11:14 24 Hour HP Update - Instructions Instructions: If the History and Physical is less than 30 days old and was completed prior to A.M. admission and or procedure and has NOT been updated on calendar day of procedure please complete this update prior to performing procedure. - Update Patient reports changes in Medical Condition: No Changes in examination, assessment, or condition: No Changes in Medication: No - Attending Attestation Admitted for Sotalol initiation 80mg BID for symptomatic PAF. Please refer to eCW encounter with Dr. Simba Luna 02/17/18 as H&P. Reports chest discomfort, dyspnea, dizziness, palpitations when in A-Fib. Currently SR. Baseline ECG sinus alanis, rate 53, QT/QTc 417/401ms. Daily ECGs to monitor QTc. Needs monitored for total of 5 Sotalol doses. Stop home lopressor since pt is bradycardic. Took Lopressor this AM, plan to start Sotalol this evening--discussed with Dr. Simba Luna. Anticoagulated on Coumadin, followed by [facility]. Most recent INR 1.4 on 02/28. If DCCV is warranted during stay, will need LARA. Check CBC, BMP, INR. Prior CV testing: [facility] 10/31/17: There is severe one vessel coronary artery disease. Patient had successful PTCA/Drug-Eluting Stent placement in the proximal LAD. TTE 10/28/17: Technically sub-optimal due to poor echocardiographic windows. LVEF 60%. Normal LV chamber size, wall thickness and function. Grossly, mildly dilated right ventricle with normal function. Moderate LVDD. Unable to estimate RVSP due to lack of TR jet. No significant valvular dysfunction.
[2018-03-06 11:40] LABS: Basophils # 0.1 K/mcL (0.0-0.2); Basophils % 0.7 %; Eosinophils # 0.4 K/mcL (0.0-0.6); Eosinophils % 2.8 %; Hemoglobin 14.2 g/dL (11.5-15.4); Immature Granulocytes % 0.3 % (0-4); Lymphocytes # 4.4 K/mcL (0.6-4.6); Lymphocytes % 29.9 %; Mean Corpuscular HGB Conc 31.6 g/dL (31.6-35.5); Mean Corpuscular Volume 85.7 fL (83.0-100.0); Mean Platelet Volume 10.6 fL (9.4-12.4); Monocytes % 6.4 %; Neutrophils # 8.8 K/mcL (1.6-8.9); Platelet Count 249 K/mcL (140-400); Red Blood Count 5.25 M/mcL (3.82-4.97); Red Cell Distribution Width 14.2 % (11.5-14.5); Segmented Neutrophils % 59.9 %
[2018-03-06 11:48] LABS: INR 1.7; Prothrombin Time 19.6 Seconds (9.4-12.1)
[2018-03-06 11:52] LABS: BUN/Creatinine Ratio 16 (6-26); Blood Urea Nitrogen 11 mg/dL (8-23); Carbon Dioxide 28 mEq/L (23-29); Chloride 105 mEq/L (98-107); Glucose 95 mg/dL (70-105); Magnesium 1.8 mg/dL (1.6-2.6); Osmolality,Calculated 287 (280-300); Potassium 3.8 mEq/L (3.5-5.1); Sodium 139 mEq/L (136-145); eGFR For Non-African Americans > 60 (> 60)
[~2018-03-06 12:10] MED LIST: *HR* Warfarin 5 MG TABLET PO SCH; Ipratropium/Albuterol Neb 3 ML IH PRN
[2018-03-06] MEDS ORDERED: *HR* Warfarin 7.5 MG TABLET PO ONE (18:00)
[2018-03-06] MEDS ORDERED: Warfarin perPT PO PRN (18:00)
[2018-03-06] MEDS: BUDESONIDE IH SCH (20:17)
[2018-03-06] MEDS: FORMOTEROL IH SCH (20:17)
[2018-03-07 05:01] LABS: INR 1.8; Prothrombin Time 20.6 Seconds (9.4-12.1)
[2018-03-07] MEDS: Levothyroxine 25 MCG TABLET PO SCH (05:49)
[2018-03-07] MEDS: FORMOTEROL IH SCH ×2 (07:49→20:26)
[2018-03-07] MEDS: BUDESONIDE IH SCH ×2 (07:49→20:26)
[2018-03-07] MEDS: Furosemide 20 MG TABLET PO SCH (08:24)
[2018-03-07] MEDS: Aspirin 81 MG TAB.CHEW PO SCH (08:24)
[2018-03-07] MEDS: Multivit/Ca/Min/Fe/FA 1 TAB TABLET PO SCH (08:24)
--- NOTE | 2018-03-07 09:15 | Electrophysiology ProgressNote ---
Date of Encounter: 03/07/18 Time of Encounter: 09:13 Assessment and Plan (1) PAF (paroxysmal atrial fibrillation) Current Visit: Yes Status: Acute Admitted for Sotalol initiation 80mg BID for symptomatic PAF. Please refer to eCW encounter with Dr. Simba Luna 02/17/18 as H&P. Reports chest discomfort, dyspnea, dizziness, palpitations when in A-Fib. Currently SR. Stopped home lopressor since pt is bradycardic. 12 hr tele AVG HR 56, SR. No PAF noted. Baseline ECG 03/06/18 sinus alanis, rate 53, QT/QTc 417/401ms. ECG 03/07/18 sinus alanis, rate 57, QT/QTc 411/405ms. Daily ECGs to monitor QTc. Needs monitored for total of 5 Sotalol doses. Anticoagulated on Coumadin, followed by [facility] Clinic. INR 1.4 on 02/28. If DCCV is warranted during stay, will need LARA. INR today 1.8--pharmacy dosing while inpt. Continue to follow. (2) CAD (coronary artery disease) Current Visit: No Status: Chronic [facility] 10/31/17 severe one vessel coronary artery disease. Patient had successful PTCA/Drug-Eluting Stent placement in the proximal LAD. TTE 10/28/17 LVEF 60%. Normal LV chamber size, wall thickness and function. Grossly, mildly dilated right ventricle with normal function. Moderate LVDD. ASA, Plavix, Statin, BB. Qualifiers: Coronary Disease-Associated Artery/Lesion type: [place] artery [place] vs. transplanted heart: [place] heart Associated angina: without angina Qualified Code(s): I25.10 - Atherosclerotic heart disease of [place] coronary artery without angina pectoris Discussion w patient/family: The assessment and plan as outlined above was discussed with the patient and/or family members who expressed understanding and agreement. All questions were answered. Thank you for involving us in the care of your patient. Please call with any questions. I will discuss all the above with Dr. Simba Luna and make changes as necessary. Subjective Principal diagnosis: PAF Interval history: S/P 2 Sotalol doses. Reports episode of dizziness last night when she raised up in bed, no recurrence. No other complaints. Objective Vital Signs, Last 4 Hours Temp Pulse Resp BP Pulse Ox 03/07/18 07:54 98.1 F 58 18 117/62 94 03/07/18 07:49 16 94 Vital Signs Temp Pulse Resp BP Pulse Ox 03/07/18 07:54 98.1 F 58 18 117/62 94 03/07/18 07:49 16 94 03/07/18 03:21 98.3 F 58 16 123/54 99 03/07/18 00:00 97.8 F 59 18 129/91 97 03/06/18 20:19 16 96 03/06/18 19:32 98.2 F 57 16 132/49 99 03/06/18 16:00 98.1 F 69 18 133/67 95 03/06/18 10:20 98.4 F 53 16 125/71 97 Intake and Output 03/06/18 03/07/18 03/07/18 23:59 07:59 15:59 Intake Total 480 / 480 425 / 425 240 / 240 Output Total 500 / 500 Balance 480 / 480 -75 / -75 240 / 240 Intake: Oral 480 / 480 425 / 425 240 / 240 Output: Urine 500 / 500 Other: Meal Dinner Breakfast Percent of Meal Consumed 90% 100% Weight 155.242 kg General: Conversant, No Apparent Distress HEENT: Atraumatic, Normocephaly, Mucus Membranes Moist Neck: No JVD, Normal carotid pulses Cardiac: Reg Rate and Rhythm, Normal S1 and S2, No Murmur Lungs: Normal Breath Sounds, No Wheeze, Rales, Rhonchi Neuro: Alert and responsive, No focal deficits noted Abdomen: Soft, Non-Tender Skin: No rashes noted on visualized skin Musculoskeletal: No Chest Wall Tenderness Extremities: No Clubbing, No Cyanosis, No Edema, Normal Pulses Results 03/06/18 11:15 03/06/18 11:15 Lab Results 03/06/18 03/06/18 03/06/18 11:15 11:15 11:15 WBC 14.8 H Hgb 14.2 Hct 45.0 H Plt Count 249 INR 1.7 Sodium 139 Potassium 3.8 Chloride 105 Carbon Dioxide 28 BUN 11 Creatinine 0.68 Glucose 95 Calcium 9.0 Magnesium 1.8 03/07/18 04:29 WBC Hgb Hct Plt Count INR 1.8 Sodium Potassium Chloride Carbon Dioxide BUN Creatinine Glucose Calcium Magnesium Short CBC 03/06/18 Range/Units 11:15 WBC 14.8 H (4.3-11.1) K/mcL Hgb 14.2 (11.5-15.4) g/dL Hct 45.0 H (35.3-44.9) % Plt Count 249 (140-400) K/mcL Neutrophils # 8.8 (1.6-8.9) K/mcL BMP 03/06/18 Range/Units 11:15 Sodium 139 (136-145) mEq/L Potassium 3.8 (3.5-5.1) mEq/L Chloride 105 (98-107) mEq/L Carbon Dioxide 28 (23-29) mEq/L BUN 11 (8-23) mg/dL Creatinine 0.68 (0.60-1.20) mg/dL Glucose 95 (70-105) mg/dL Calcium 9.0 (8.6-10.3) mg/dL Active Medications Albuterol Sulfate (Albuterol Inhaler) 2 puff IH Q4H PRN PRN Reason: Shortness Of Breath Stop: 09/05/18 11:25 Albuterol/Ipratropium (Duoneb) 3 ml IH Q6HR PRN PRN Reason: Shortness Of Breath Stop: 09/05/18 11:25 Aspirin (Aspirin) 81 mg PO DAILY THAD Stop: 09/06/18 09:01 Last Admin: 03/07/18 08:24 Dose: 81 mg Atorvastatin Calcium (Lipitor) 20 mg PO HS THAD Stop: 09/05/18 21:01 Last Admin: 03/06/18 21:44 Dose: 20 mg Budesonide/Formoterol Fumarate (Symbicort) 2 puff IH BIDR THAD Stop: 09/05/18 22:01 Last Admin: 03/07/18 07:49 Dose: 2 puff Bupropion HCl (Wellbutrin) 100 mg PO DAILY THAD Stop: 09/06/18 09:01 Last Admin: 03/07/18 08:24 Dose: 100 mg Clopidogrel Bisulfate (Plavix) 75 mg PO DAILY THAD Stop: 09/06/18 09:01 Last Admin: 03/07/18 08:24 Dose: 75 mg Cyclobenzaprine HCl (Flexeril) 5 mg PO BID PRN PRN Reason: Muscle Spasm Furosemide (Lasix) 20 mg PO DAILY THAD Stop: 09/06/18 09:01 Last Admin: 03/07/18 08:24 Dose: 20 mg Levothyroxine Sodium (Synthroid) 25 mcg PO 0630 [facility] Stop: 09/06/18 06:31 Last Admin: 03/07/18 05:49 Dose: 25 mcg Meclizine HCl (Antivert) 25 mg PO Q8H PRN PRN Reason: Vertigo Multivitamins/Calcium (Thera M Plus) 1 tab PO DAILY [facility] Stop: 09/06/18 09:01 Last Admin: 03/07/18 08:24 Dose: 1 tab Sotalol HCl (Betapace) 80 mg PO Q12HR THAD Stop: 09/05/18 18:01 Last Admin: 03/07/18 05:50 Dose: 80 mg Warfarin Sodium (Coumadin Perpt) 1 each PO DAILY@1800 PRN PRN Reason: SEE COMMENTS Stop: 09/05/18 18:01 - EKG Interpretation EKG results cardiology: other (12 hr tele AVG HR 56, SR) - VTE Reasons for not Prescribing Prophylaxis: Not indicated-Anticoagulated or INR therapeutic Consult Discharge Plan - Plan Referrals: Araceli Mcgovern [employer] WORKER [Advanced Practice Nurse] - 03/21/18 11:00 am Simba Luna MD [Partnered Physician] - (Office will call patient at home with follow up appointment)
[2018-03-07] MEDS ORDERED: *HR* Warfarin 5 MG TABLET PO SCH (11:24)
[2018-03-07] MEDS ORDERED: *HR* Warfarin 7.5 MG TABLET PO ONE (18:00)
--- NOTE | 2018-03-07 20:05 | Electrocardiograph Report ---
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
[2018-03-08 04:20] LABS: INR 1.9
[2018-03-08] MEDS: Levothyroxine 25 MCG TABLET PO SCH (06:14)
[2018-03-08] MEDS: FORMOTEROL IH SCH (07:56)
[2018-03-08] MEDS: BUDESONIDE IH SCH (07:56)
[2018-03-08] MEDS: Aspirin 81 MG TAB.CHEW PO SCH (08:18)
[2018-03-08] MEDS: Multivit/Ca/Min/Fe/FA 1 TAB TABLET PO SCH (08:18)
[2018-03-08] MEDS: Furosemide 20 MG TABLET PO SCH (08:18)
--- NOTE | 2018-03-08 12:36 | Discharge Summary ---
Orders not resulted at time of discharge: Pending orders 03/08/18 06:00 ECG 12 lead ECG [ECG] AM 0600 03/09/18 04:00 INR/PT [Prothrombin Time INR] [COAG] AM 0400 03/09/18 06:00 ECG 12 lead ECG [ECG] AM 0600 03/10/18 04:00 INR/PT [Prothrombin Time INR] [COAG] AM 0400 03/11/18 04:00 INR/PT [Prothrombin Time INR] [COAG] AM 0400 Date of Encounter: 03/08/18 Time of Encounter: 12:34 - Discharge Diagnosis (1) PAF (paroxysmal atrial fibrillation) Priority: Primary Status: Acute (2) CAD (coronary artery disease) Priority: Secondary Status: Chronic Qualifiers: Coronary Disease-Associated Artery/Lesion type: [place] artery [place] vs. transplanted heart: [place] heart Associated angina: without angina Qualified Code(s): I25.10 - Atherosclerotic heart disease of [place] coronary artery without angina pectoris (3) Morbid obesity Priority: Secondary Status: Acute - Hospital Course Hospital course: Ms. Licea is a 62 year old female admitted for Sotalol initiation 80mg BID for symptomatic PAF on 03/06/18. Please refer to eCW encounter with Dr. Simba Luna 02/17/18 as H&P. Reports chest discomfort, dyspnea, dizziness, palpitations when in A-Fib. Has maintained SR during stay. Stopped home lopressor on admission since pt is bradycardic. 12 hr tele AVG HR 55, SR. No PAF noted. Daily ECGs show stable QTc. QT/QTc today 432/420ms. Needs monitored for total of 5 Sotalol doses. 5th dose will be this evening. Instructed RN to given 5th dose, obtain ECG and if QTc is stable, will d/c home. Anticoagulated on Coumadin, followed by [facility]. INR 1.9 today. - Time Spent with Patient Total time spent providing and/or coordinating discharge services: Less than 30 minutes - Discharge Medications Prescriptions: Sotalol [Betapace] 80 mg PO Q12HR #60 tablet Home Medications: Albuterol Sulfate [Proair Hfa] 2 puff IH Q4H PRN 10/18/17 [History] Mometasone/Formoterol [Dulera 200 Mcg/5 Mcg Inhaler] 1 puff IH BID 10/18/17 [History] Furosemide [Lasix] 20 mg PO DAILY 10/27/17 [History] Cyclobenzaprine HCl 5 mg PO BID PRN 10/30/17 [History] Aspirin 81 mg PO DAILY #30 tab.chew 11/01/17 [Rx] Clopidogrel [Plavix] 75 mg PO DAILY #30 tablet 11/01/17 [Rx] Meclizine HCl [Verticalm] 25 mg PO Q8H PRN 11/16/17 [History] Mv-Mn/FA/Vit K/Lycop/Lut/Coq10 [Daily Multivitamin Capsule] 1 cap PO DAILY 11/16/17 [History] Atorvastatin [Lipitor] 20 mg PO HS 03/06/18 [History] BuPROPion [Wellbutrin] 100 mg PO DAILY 03/06/18 [History] Ipratropium/Albuterol Neb [Duoneb] 3 ml IH Q6HR PRN 03/06/18 [History] Levothyroxine [Synthroid] 25 mcg PO 0630 03/06/18 [History] Warfarin [Coumadin] 5 mg PO SUTUTHSA 03/06/18 [History] Warfarin [Coumadin] 7.5 mg PO MOWEFR 03/06/18 [History] Sotalol [Betapace] 80 mg PO Q12HR #60 tablet 03/08/18 [Rx] Allergies/Adverse Reactions: Allergy/AdvReac Type Severity Reaction Status Date / Time ketoprofen Allergy Rash Verified 11/16/17 07:23 codeine AdvReac Vomiting Verified 11/16/17 07:23 Date of admission: 03/06/18 10:10 Primary care physician: PCP NONE Discharging clinician: Scott Apodaca Anticipated date of discharge: 03/08/18 Physical Examination Vital Signs, Last 4 Hours Temp Pulse Resp BP Pulse Ox 03/08/18 11:26 97.6 F 50 18 114/34 97 Vital Signs Temp Pulse Resp BP Pulse Ox 03/08/18 11:26 97.6 F 50 18 114/34 97 03/08/18 07:56 18 91 03/08/18 07:38 97.8 F 53 17 111/54 95 03/08/18 03:44 98.1 F 57 16 118/60 97 03/07/18 23:16 98.0 F 55 16 131/72 95 03/07/18 20:37 98.3 F 59 16 125/52 93 03/07/18 20:26 16 92 03/07/18 20:12 56 03/07/18 17:07 98.1 F 63 18 100/51 96 Intake and Output 03/07/18 03/08/18 03/08/18 23:59 07:59 15:59 Intake Total 480 / 480 920 / 920 Balance 480 / 480 920 / 920 Intake: Oral 480 / 480 920 / 920 Other: Meal Dinner Breakfast Percent of Meal Consumed 75% 95% # Voids 1 Weight 148.6 kg Patient Weight 03/08/18 23:59 Weight 148.6 kg General: Conversant, No Apparent Distress HEENT: Atraumatic, Normocephaly, Mucus Membranes Moist Neck: No JVD, Normal carotid pulses Cardiac: Reg Rate and Rhythm, Normal S1 and S2, No Murmur Lungs: Normal Breath Sounds, No Wheeze, Rales, Rhonchi Neuro: Alert and responsive, No focal deficits noted Abdomen: Soft, Non-Tender Skin: No rashes noted on visualized skin Musculoskeletal: No Chest Wall Tenderness Extremities: No Clubbing, No Cyanosis, No Edema, Normal Pulses - Patient Status Disposition: Home, Self-Care Condition: Good Functional capacity at discharge: independent ambulation Overall status at discharge: patient is progressing back to baseline - Discharge Instructions Follow Up With: Araceli Mcgovern CNP [Advanced Practice Nurse] - 03/21/18 11:00 am Simba Luna MD [Partnered Physician] - (Office will call patient at home with follow up appointment) - Diet and Activity Activity: increase activity as tolerated Diet: low fat, low cholesterol - VTE Reasons for not Prescribing Prophylaxis: Not indicated-Anticoagulated or INR therapeutic
[2018-03-08 16:46] VITALS: BP 119/49
[2018-03-08] MEDS ORDERED: *HR* Warfarin 7.5 MG TABLET PO ONE (18:00)
--- NOTE | 2018-03-11 20:48 | Electrocardiograph Report ---
[address] [place], [place] [address] Test Date: 2018-03-07 Pat Name: Tequila Licea Department: 110 Room: 2N14 Gender: F [employer]: : 1955 Requested By: Scott Apodaca Order Number: [id number] Reading MD: Juan Uriostegui Measurements Intervals Shorter Rate: 57 P: 70 HI: 173 QRS: 73 QRSD: 97 T: 74 QT: 411 QTc: 405 Interpretive Statements SINUS BRADYCARDIA Electronically Signed On 03-11-2018 20:46:35 EST by Juan Uriostegui
== END 2018-03-08 18:39 | disposition home or self-care (01) ==
LOC: 2NNU
PROVIDERS: ADMIT Internal Medicine Clinical Cardiac Electrophysiology; ATTEND Internal Medicine Clinical Cardiac Electrophysiology